=== PATIENT | male | born 1945 | race Caucasian/White ===

== ENCOUNTER 2017-04-04 20:59 | Emergency (ER) | payer MEDICARE, BC ==
[2017-04-04] MEDS ORDERED: Adacel (T-DAP) 0.5 ML VIAL ONE (21:40)
== END 2017-04-04 22:15 | disposition home or self-care (01) ==
LOC: SCSER 20:59
DX: S61.012A Laceration without foreign body of left thumb without damage to nail, initial encounter (principal); Z23 Encounter for immunization; I25.10 Atherosclerotic heart disease of native coronary artery without angina pectoris; E11.40 Type 2 diabetes mellitus with diabetic neuropathy, unspecified; I10 Essential (primary) hypertension; F32.9 Major depressive disorder, single episode, unspecified; Z87.891 Personal history of nicotine dependence; Z79.82 Long term (current) use of aspirin; W26.0XXA Contact with knife, initial encounter; Y93.G3 Activity, cooking and baking; Y92.69 Other specified industrial and construction area as the place of occurrence of the external cause; Y99.0 Civilian activity done for income or pay; Z79.899 Other long term (current) drug therapy; Z79.4 Long term (current) use of insulin
CPT/HCPCS: 90471; 90715

== ENCOUNTER 2017-04-08 16:31 | Inpatient (IN) | payer MEDICARE, BC ==
[2017-04-08 17:22] LABS: #Lymphocytes 0.6 thou/uL (1.20-3.40); #Monocytes 1.1 thou/uL (0.11-0.59); %Basophils 0.2 % (0.0-1.0); %Eosinophils 0.1 % (0.0-10.0); %Lymphocytes 3.3 % (21.0-51.0); Mean Platelet Volume 6.4 fL (7.4-10.4); Red Blood Cell (RBC) Count 4.78 mill/uL (4.70-6.10); White Blood Cell (WBC) Count 18.8 thou/uL (4.8-10.8)
--- NOTE | 2017-04-08 17:32 | RAD ---
AP CHEST: History: Fever. Date: 04-08-17 Comparison: 03-23-16 FINDINGS: Two AP views of the chest obtained and demonstrate sternotomy wires seen. Cardiomegaly is noted. The lungs are well aerated. No evidence of active intrathoracic disease seen. No evidence of effusions, pneumonia, or pneumothorax is seen. IMPRESSION: Unremarkable AP chest. POS: [facility]
[2017-04-08] MEDS ORDERED: Vancomycin HCl 1.5 GM in Sodium Chloride 0.9% 250 ML 300 ML IVPB ONE (17:45)
[2017-04-08 17:46] LABS: ALT (SGPT) 38 U/L (8-55); AST (SGOT) 35 U/L (5-34); Alkaline Phosphatase 147 U/L (40-150); Anion Gap 16 mmol/L (10-20); BUN (Urea Nitrogen) 14 mg/dL (8.4-25.7); Bilirubin, Total 1.7 mg/dL (0.2-1.2); Calc. Creatinine Clearance 0 mL/min (70-130); Calcium 9.7 mg/dL (7.8-10.44); Carbon Dioxide 24 mmol/L (23-31); Chloride 101 mmol/L (98-107); Estimated GFR-MDRD 90; Globulin 3.1 g/dL (2.4-3.5); Protein, Total 7.3 g/dL (5.8-8.1)
[2017-04-08 17:52] LABS: Lactic Acid - Sepsis 5.7 mmol/L (0.5-2.2)
[2017-04-08 18:59] LABS: Bilirubin Negative (Negative); Blood, Urine Moderate (Negative); Glucose, Urine (Dipstick) >=1000 mg/dL (Negative); Ketone, Urine 40 mg/dL (Negative); Nitrite Negative (Negative); Protein, Urine (Dipstick) Negative (Neg-Trace)
[2017-04-08 19:01] LABS: Bacteria/HPF None Seen HPF (None Seen); Hyaline Casts/LPF 0-3 HYALINE CAST LPF (0-3 Hyaline); RBC/HPF 0-3 HPF (0-3); Squamous Epithelial None Seen HPF (0-3); WBC/HPF 0-3 HPF (0-3)
[2017-04-08] MEDS ORDERED: Sodium Chloride 0.9% 1,000 ML IV SCH (20:30)
[2017-04-08] MEDS ORDERED: HumaLOG 300 UNITS/3 ML VIAL SC PRN (20:40)
[2017-04-08] MEDS ORDERED: Ondansetron ODT 4 MG TAB PO PRN (20:40)
[2017-04-08] MEDS ORDERED: Ondansetron HCl/PF 4 MG/2 ML Vial IVP PRN (20:40)
[2017-04-08] MEDS ORDERED: Acetaminophen 325 MG TAB PO PRN (20:40)
[2017-04-08] MEDS ORDERED: Senokot 8.6 MG TAB PO PRN (20:40)
[2017-04-08] MEDS ORDERED: Bisacodyl 5 MG TAB PO PRN (20:40)
[2017-04-08] MEDS ORDERED: Bisacodyl 10 MG SUPP PR PRN (20:40)
[2017-04-08] MEDS ORDERED: Dextrose 50% Abboject 50 ML SYRINGE SLOW IVP PRN (20:40)
[2017-04-08] MEDS ORDERED: Dextrose 5% in Water 1,000 ML IV PRN (20:40)
[2017-04-08] MEDS ORDERED: Enoxaparin Sodium 40 MG/0.4 ML SYRINGE SC SCH (20:45)
[2017-04-08 21:29] LABS: Lactic Acid - Sepsis 3.3 mmol/L (0.5-2.2)
[2017-04-08] MEDS: Insulin Detemir 100 UNITS/ML 25 UNITS in Admixture Fee SC SCH (21:30)
[2017-04-08] MEDS: Sodium Chloride 0.9% 1,000 ML IV SCH (21:50)
[2017-04-08] MEDS: Famotidine 20 MG TAB PO SCH (21:52)
[2017-04-08] MEDS: Piperacillin/Tazobactam 3.375 GM, Admixture Fee 1 EACH in Sodium Chloride 0.9% 100 ML IVPB SCH (23:13)
[2017-04-09] MEDS: oxyCODONE/Acetaminophen 5 mg/325 mg Tablet PO PRN ×3 (00:11→18:21)
[2017-04-09] MEDS: Gabapentin 300 MG CAP PO SCH ×6 (00:13→23:49)
[2017-04-09] MEDS: Sodium Chloride 0.9% 1,000 ML IV SCH ×5 (03:20→20:54)
[2017-04-09] MEDS ORDERED: Sodium Chloride 0.9% 1,000 ML IV SCH (04:15)
--- NOTE | 2017-04-09 06:19 | HP-2 ---
DATE OF ADMISSION: 04/08/2017 CODE STATUS: FULL. PRIMARY CARE PHYSICIAN: Colby Garcia M.D. ATTENDING PHYSICIAN: Stephany Giordano D.O. RESIDENT: James Aguiar, PGY-1 CHIEF COMPLAINT: Vomiting and generalized weakness. HISTORY OF PRESENT ILLNESS: This is a 71-year-old male that got sick around 9:00 this mor angelique. states that they were going to her appointment at the neurologist. On the way to the [place], he started to get chills. As they were in the office, he started to get real pale. She told him to go out and wait in the car. After she came out, she noticed that he was really confused , still having chills. At this time, they got home. She took his blood sugars around 250s thinking that he was maybe hypoglycemic. She laid him in bed to rest. She had to go on errands. She said w hen she got home that he was confused, kind of wrapped up in bed. There was vomit everywhere, some in the bathroom, checked sugar and again, it was 275. It was at this time, he came to the ER. The patient reports having a congestion a little bit for a few days before but denied any other symptoms before this. No cough. No real shortness of breath. Did report fevers, chills today. No diarrhe a, no constipation. Says that he does have constipation sometimes chronically. did say that h is urine smelled kind of strong. The patient reports that he takes Lantus baseline 25-45 mg at nigh t based on sugars and takes NovoLog fast acting as needed. REVIEW OF SYSTEMS: All review of systems not listed in the HPI, otherwise negative at this time. PAST MEDICAL HISTORY: Neuropathy, diabetes mellitus type 2, CAD, hypertension, hyperlipidemia. PAST SURGICAL HISTORY: Triple bypass in 2016, bilateral knee replacements, cholecystectomy, and eric endectomy. ALLERGIES: TIZANIDINE, TRAMADOL, and ULTRAM. MEDICATIONS: Colace, Lantus, NovoLog, Percocet 10/325, fentanyl patch 100 mg, gabapentin 600 mg t.i .d., trazodone 50 mg, tamsulosin 0.4 mg, atorvastatin 80 mg, metoprolol 100 mg, and aspirin 81 mg. FAMILY HISTORY: Mom has diabetes. SOCIAL HISTORY: Quit smoking 30 years ago. No alcohol use and no drug use. PHYSICAL EXAMINATION: VITAL SIGNS: His blood pressure is 136/93, pulse of 100, respirations 19, temperature is 100.9, pul se oximetry is 95% on 2 liters. Weight is 102 kg. GENERAL: The patient is alert and oriented x3. He is well-developed, little obese, appropriately i nteractive. EYES: PERRLA. Conjunctivae are within normal limits. ENT: Nasal mucosa within normal limits. Oropharynx is within normal limits. NECK: Supple, no lymphadenopathy, no thyromegaly, no bruits. CARDIOVASCULAR: Regular rate and rhythm. A systolic murmur is noted. No gallops. Radial pulses, pedal pulses palpated bilaterally. RESPIRATIONS: Normal breathing effort, symmetric chest expansion. Unlabored breathing. LUNGS: Clear to auscultation bilaterally. SKIN: Warm and dry. He does have a few cuts on his feet below, but no redness or tenderness noted. ABDOMEN: Soft, nontender to palpation. Bowel sounds heard in all 4 quadrants. No masses or disten tion. EXTREMITIES: Moves all extremities. NEUROLOGIC: No focal neuro deficits. PSYCHIATRIC: Appropriate. LABORATORY DATA: White blood cell count 18.8, hemoglobin 16.3, hematocrit 47, MCV 98.3, platelets 1 84. Sodium 136, potassium 4.5, chloride 101, CO2 of 24, BUN 14, creatinine 0.84, glucose is 271, ca lcium is 9.7, total protein was 7.3, albumin was 4.2, alkaline phosphatase was 147, AST was 35, ALT was 38, total bilirubin was 1.7. Lactic acid was 5.7, 98.3% neutrophils. UA showed moderate blood, ketones of 40, glucose over 1000, red blood cells 0-3, white blood cells 0-3. All other tests in t he UA were negative. Chest x-ray was unremarkable AP chest. ASSESSMENT AND PLAN: 1. Sepsis of unknown source. We will start him on vancomycin and Zosyn for broad coverage. We abdiel l start him on normal saline at 150 for fluid due to infection. He got 2 boluses in the ER. We abdiel l continue to check lactic acids and make sure they are trending down. We will check a flu swab. W e will repeat CBC in the morning to trend white blood cell count. We will repeat chest x-ray in the morning as when we viewed the chest x-ray, it did look like there is a little congestion on the lef t side and just want to be sure maybe when he is able to stand. We will give Tylenol for fevers and we will draw blood and urine cultures and await results. 2. Coronary artery disease. We will continue aspirin, beta-mynor, and a statin. 3. Diabetes mellitus type 2. We will start him on Levemir 25 units b.i.d. We will check Accu-Chek s a.c. and at bedtime and put him on a moderate sliding scale insulin. We will put him on a diabeti c diet. 4. Hypertension. Continue his home meds. 5. Hyperbilirubinemia. We will check a fraction of bilirubin and possibly order a right upper quad rant ultrasound. We will put him on Lovenox for a deep venous thrombosis prophylaxis.
[2017-04-09] MEDS: Piperacillin/Tazobactam 3.375 GM, Admixture Fee 1 EACH in Sodium Chloride 0.9% 100 ML IVPB SCH ×4 (06:37→23:49)
[2017-04-09 06:46] LABS: ALT (SGPT) 26 U/L (8-55); AST (SGOT) 35 U/L (5-34); Alkaline Phosphatase 107 U/L (40-150); Anion Gap 11 mmol/L (10-20); BUN (Urea Nitrogen) 10 mg/dL (8.4-25.7); Bilirubin, Total 1.2 mg/dL (0.2-1.2); Calc. Creatinine Clearance 0 mL/min (70-130); Calcium 7.9 mg/dL (7.8-10.44); Carbon Dioxide 19 mmol/L (23-31); Chloride 109 mmol/L (98-107); Estimated GFR-MDRD Greater than 90; Globulin 2.6 g/dL (2.4-3.5); Protein, Total 5.7 g/dL (5.8-8.1)
--- NOTE | 2017-04-09 06:46 | HP ---
DATE OF ADMISSION: 04/08/2017 ATTENDING: Stephany Giordano DO RESIDENT: Dr. James Aguiar. Dr. James Aguiar's history and physical have been reviewed and case discussed. Pertinent portions repeated by myself. I agree with the assessment and plan with following addendum. Mr. Lynn is a pleasant 71-year-old male with past medical history of coronary artery di sease, status post CABG, type 2 diabetes, hyperlipidemia, and hypertension, who was admitted today f or severe sepsis. There is no obvious source that could be identified at this time. His chest x-ra y does not appear to show pneumonia, but is difficult to read portable view. We will obtain PA and lateral. In addition, we will check a flu swab. UA does not show a UTI. He does have an elevated lactate, which was improved with fluid resuscitation. His current mental status is also improved. His glucose is stable. He does have a mildly elevated bilirubin, may consider with a mildly elevate d AST of 35. We will check a right upper quadrant ultrasound to evaluate for gallbladder involvemen t and cholecystitis. We will continue his home medications for his coronary artery disease and hype rlipidemia. He is not hypotensive at this time. We will consider maintaining at least some of his home blood pressure medications. The urine culture and blood cultures have been performed. We will monitor his neurologic status closely and perform LP if there is any concern for meningitis. He valle s been started on vancomycin and Zosyn. We will continue these at this time. His renal function is good and he should berenally dosed.
[2017-04-09 07:11] LABS: #Lymphocytes 1.1 thou/uL (1.20-3.40); #Monocytes 1.1 thou/uL (0.11-0.59); #Neutrophils 8.1 thou/uL (1.40-6.50); %Basophils 0.1 % (0.0-1.0); %Eosinophils 0.3 % (0.0-10.0); %Lymphocytes 10.7 % (21.0-51.0); %Monocytes 10.3 % (0.0-10.0); Hematocrit 39.7 % (42.0-52.0); Mean Platelet Volume 6.4 fL (7.4-10.4); White Blood Cell (WBC) Count 10.3 thou/uL (4.8-10.8)
--- NOTE | 2017-04-09 08:07 | PDOC.FM ---
- Subjective Subjective: Pt complains of new onset diarrhea and confusion. He denies fever, chills, nausea/vomiting, weakness, cough. There were no acute events over night. - Objective Vital Signs & Weight: Vital Signs (12 hours) Temp Pulse Resp BP Pulse Ox 04/09/17 04:00 100.3 F H 79 16 118/73 95 04/09/17 00:00 98.8 F 95 18 152/81 H 96 04/08/17 20:40 99.6 F 78 16 97 I&O: 04/08/17 04/09/17 04/10/17 06:59 06:59 06:59 Intake Total 1950 Output Total 700 Balance 1250 Result Diagrams: 04/09/17 06:10 04/09/17 06:10 Radiology Reviewed by me: Yes (possible RLL PNA. Rads read pending) <Christiano Betancourt - Last Filed: 04/09/17 08:05> - Objective Vital Signs & Weight: Vital Signs (12 hours) Temp Pulse Resp BP BP Pulse Ox 04/09/17 11:06 98.7 F 75 16 108/70 96 04/09/17 08:12 99.5 F 74 16 122/75 95 04/09/17 07:55 99.5 F 74 16 04/09/17 04:00 100.3 F H 79 16 118/73 95 I&O: 04/08/17 04/09/17 04/10/17 06:59 06:59 06:59 Intake Total 1950 Output Total 700 Balance 1250 Result Diagrams: 04/09/17 06:10 04/09/17 06:10 <Zuleika Rooney - Last Filed: 04/09/17 16:00> Phys Exam - Physical Examination Constitutional: NAD HEENT: PERRLA, moist MMs Neck: no nodes Respiratory: clear to auscultation bilateral Cardiovascular: RRR known systolic murmur Gastrointestinal: positive bowel sounds LUQ and LLQ tenderness, shifting dullness Musculoskeletal: no edema Neurological: non-focal Psychiatric: normal affect, A&O x 3 Skin: no rash Deviation from normal: multiple superficial abrasions on abdomen and L foot. Pt does not know the -: source <Christiano Betancourt - Last Filed: 04/09/17 08:05> Dx/Plan (1) Sepsis Code(s): A41.9 - SEPSIS, UNSPECIFIED ORGANISM Status: Acute Qualifiers: Sepsis type: sepsis due to unspecified organism Qualified Code(s): A41.9 - Sepsis, unspecified organism (2) Lactic acidosis Code(s): E87.2 - ACIDOSIS Status: Acute (3) Leukocytosis Code(s): D72.829 - ELEVATED WHITE BLOOD CELL COUNT, UNSPECIFIED Status: Resolved Qualifiers: Leukocytosis type: unspecified Qualified Code(s): D72.829 - Elevated white blood cell count, unspecified (4) Diarrhea Code(s): R19.7 - DIARRHEA, UNSPECIFIED Status: Acute Qualifiers: Diarrhea type: unspecified type Qualified Code(s): R19.7 - Diarrhea, unspecified (5) Hypoalbuminemia Code(s): E88.09 - OTH DISORDERS OF PLASMA-PROTEIN METABOLISM, NEC Status: Acute (6) Diabetes mellitus Code(s): E11.9 - TYPE 2 DIABETES MELLITUS WITHOUT COMPLICATIONS Status: Chronic Qualifiers: Diabetes mellitus type: type 2 Diabetes mellitus complication status: with neurologic complications Diabetes mellitus complication detail: with polyneuropathy Diabetes mellitus ad terminal makeup operator insulin use: with senior living use Qualified Code(s): E11.42 - Type 2 diabetes mellitus with diabetic polyneuropathy; Z79.4 - intermediate (current) use of insulin; Z79.4 - intermediate ( current) use of insulin; Z79.4 - terminal superintendent (current) use of insulin; Z79.4 - intermediate (current) use of insulin (7) Peripheral neuropathy Code(s): G62.9 - POLYNEUROPATHY, UNSPECIFIED Status: Chronic (8) HLD (hyperlipidemia) Code(s): E78.5 - HYPERLIPIDEMIA, UNSPECIFIED Status: Chronic Qualifiers: Hyperlipidemia type: Pure hypercholesterolemia (9) Hypertension Code(s): I10 - ESSENTIAL (PRIMARY) HYPERTENSION Status: Chronic Qualifiers: Hypertension type: essential hypertension Qualified Code(s): I10 - Essential (primary) hypertension (10) Chronic obstructive pulmonary disease (COPD) Status: Suspected (11) History of alcohol abuse Code(s): Z87.898 - PERSONAL HISTORY OF OTHER SPECIFIED CONDITIONS Status: Chronic - Plan Plan: 1. Sepsis -current source unknown. Differential includes PNA, diverticulitis, SBP, bacteremia -continue IVF -WBC has improved with abx. Continue Vanc and Zosyn until cx result -Abd US, evaluate for peritoneal effusion/cirrhosis -Repeat CXR -Stool sample for c diff -FOBT 2. lactic acidosis -2/2 sepsis. Eval and treat as above 3. Leukocytosis -currently resolved w/abx. -follow CBC 4. diarrhea -new onset this morning -eval for infectious etiology as above 5. hypoalbuminemia -possible cirrhosis -order prealbumin to evaluate for nutritional status 6. DM2 -uncontrolled diabetic w/significant peripheral neuropathy -low carb diet -SSI, continue home basal insulin 7. Peripheral neuropathy -feet do not appear to be infected, there are no ulcers -continue home fentanyl patch 8. HLD -continue home atorvastatin 9. HTN -controlled -continue home meds 10. COPD -per hx. Pt does not have an o2 requirement and is on no meds. Unsure if true dx 11. Previous etoh abuse -Abd US to evaluate for cirrhosis. Consider biopsy pending results <Christiano Betancourt - Last Filed: 04/09/17 08:05> Attending Addendum - Attending Addendum I personally evaluated the patient and discussed the management with Dr. Betancourt. I agree with the History, Examination, Assessment and Plan documented above with any addition or exceptions noted below. Source of infection is unknown at this time though I suspect he may have diverticulitis or other colon infection. Pt developed diarrhea this morning and had abdominal pain. The patient's abdominal pain resolved during my visit. Will get CT abd/pelvis. Continue antibiotics and await cultures. <Zuleika Rooney - Last Filed: 04/09/17 16:00>
--- NOTE | 2017-04-09 08:17 | ULT ---
RIGHT UPPER QUADRANT ULTRASOUND: Date: 04/09/17 HISTORY: Elevated bilirubin levels. FINDINGS: The left lobe of the liver is suboptimally visualized. The remainder of the liver demonstrates incre ased echogenicity consistent with fatty infiltration without definite focal mass or intrahepatic ramonita clay dilatation. The gallbladder, common bile duct, and pancreas are not visualized. The right kidney demonstrates a 1.9 cm cyst. No hydronephrosis seen in the right kidney. No free fluid is noted in M orison's pouch. IMPRESSION: 1. Limited exam. 2. Fatty liver. 3. Right renal cyst. POS: [facility]
--- NOTE | 2017-04-09 08:22 | RAD ---
PA AND LATERAL VIEWS CHEST: Date: 04/09/17 HISTORY: Fever. FINDINGS: Comparison made with exam from previous day. There are changes of median sternotomy. The heart size is enlarged. The lungs are well expanded with out focal areas of consolidation, pneumothorax, lalit pulmonary edema, or pleural effusions. There a re degenerative changes in the spine. IMPRESSION: No acute process. POS: [facility]
[2017-04-09] MEDS: Insulin Detemir 100 UNITS/ML 25 UNITS in Admixture Fee SC SCH ×2 (10:08→20:53)
[2017-04-09] MEDS: Aspirin 81 mg Enteric Coated Tablet PO SCH (10:08)
[2017-04-09] MEDS: Famotidine 20 MG TAB PO SCH ×2 (10:08→20:52)
[2017-04-09] MEDS: fentaNYL 100 mcg/hour Patch TD SCH (10:20)
[2017-04-09 10:54] LABS: Lactic Acid - Sepsis 3.1 mmol/L (0.5-2.2)
[2017-04-09] MEDS ORDERED: Iopamidol 370 76% 100 ML VIAL ONE (13:01)
--- NOTE | 2017-04-09 15:21 | CT ---
CT OF THE ABDOMEN AND PELVIS: Date: 04-09-17 Comparison: 04-27-14 History: Sepsis, fever, and diarrhea. Technique: Serial axial CT imaging at 5 mm intervals from lung bases through the pubic symphysis wit h intravenous and oral contrast. Coronal reformatted imaging obtained. FINDINGS: The imaged lung bases appear unremarkable. Cholecystectomy clips are present. No free intraperitonea l air is noted. The hepatic parenchyma is diffusely hypodense, evidence of steatosis. Punctate calcifications within the liver and spleen noted, evidence of prior granulomatous disease. There is fatty atrophy of the pancreas, stable. A stable duodenal diverticulum is present. Left adrenal gland is unremarkable. There is calcification as well as areas of fat density within the adrenal gland on the right, stable , suggesting sequellae of prior insult and/or adrenal myelolipoma. There is a nonobstructing subcentimeter stone in the lower pole of the left kidney. There is an exophytic hypodense lesion within the midpole of the right kidney measuring 2 cm with Ho unsfield units of 11-14, suggesting a cyst. Fluid density material is seen within the distal sigmoid colon and rectum, suggesting liquid stool o n the basis of diarrheal illness. The region of the ascending colon and hepatic flexure demonstrates a mild degree of wall thickening and questionable mild pericolonic fat stranding, especially in the region of the ascending colon. Th is may represent a focal area of colitis. There is no evidence for intraabdominal abscess or large/s mall bowel obstruction. There is relatively mild scattered arthrosclerotic calcification of the abdominal aorta and its bran ches. The celiac axis, superior mesenteric artery, and inferior mesenteric artery are patent. There is no lymphadenopathy in the pelvis, the retroperitoneum, or the mesentery. There is a mildly enlarged stable portahepatis node on axial images 27 with internal punctate calcification. 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 No acute osseous abnormality is seen. IMPRESSION: 1. No evidence for bowel obstruction or free intraperitoneal air. 2. Mild wall thickening of the ascending colon and hepatic flexure with probable mild pericolonic fa t stranding. Findings are suspicious for nonspecific right sided colitis. Liquid material within the sigmoid colon and rectum suggests a diarrheal illness. 3. Additional incidental findings as detailed above. POS: [facility]
[2017-04-09 18:31] VITALS: BMI 30.7
[2017-04-09] MEDS: Tamsulosin HCl 0.4 MG CAP PO SCH (20:52)
[2017-04-09] MEDS: Atorvastatin Calcium 40 MG TAB PO SCH (20:53)
[2017-04-09] MEDS: traZODone HCl 50 MG TAB PO SCH (20:53)
[2017-04-10] MEDS: Sodium Chloride 0.9% 1,000 ML IV SCH (05:29)
[2017-04-10] MEDS: Piperacillin/Tazobactam 3.375 GM, Admixture Fee 1 EACH in Sodium Chloride 0.9% 100 ML IVPB SCH (05:29)
[2017-04-10 07:49] LABS: ALT (SGPT) 29 U/L (8-55); AST (SGOT) 42 U/L (5-34); Alkaline Phosphatase 95 U/L (40-150); Anion Gap 10 mmol/L (10-20); BUN (Urea Nitrogen) 8 mg/dL (8.4-25.7); Bilirubin, Total 1.3 mg/dL (0.2-1.2); Calc. Creatinine Clearance 178 mL/min (70-130); Calcium 8.1 mg/dL (7.8-10.44); Carbon Dioxide 20 mmol/L (23-31); Chloride 108 mmol/L (98-107); Estimated GFR-MDRD Greater than 90; Globulin 2.4 g/dL (2.4-3.5); Protein, Total 5.5 g/dL (5.8-8.1)
[2017-04-10 07:51] LABS: #Basophils 0.1 thou/uL (0.0-0.2); #Eosinphils 0.2 thou/uL (0.0-0.7); #Lymphocytes 1.5 thou/uL (1.20-3.40); #Neutrophils 5.8 thou/uL (1.40-6.50); %Basophils 0.7 % (0.0-1.0); %Lymphocytes 17.2 % (21.0-51.0); %Monocytes 11.9 % (0.0-10.0); Mean Platelet Volume 6.5 fL (7.4-10.4); White Blood Cell (WBC) Count 8.5 thou/uL (4.8-10.8)
[2017-04-10] MEDS ORDERED: Potassium Chloride 20 MEQ TAB PO ONE (07:54)
--- NOTE | 2017-04-10 07:58 | PDOC.FM ---
- Subjective Subjective: Pt states that he feels well today. His diarrhea has continued, but improved. He states that his abdominal pain has resolved. He denies fever, chills, n/v. His appetite is good. There were no acute events over night. - Objective MAR Reviewed: Yes Vital Signs & Weight: Vital Signs (12 hours) Temp Pulse Resp BP Pulse Ox 04/10/17 07:35 98 F 65 16 121/79 94 L 04/09/17 20:00 98.7 F 61 18 148/88 H 96 Weight Weight 105.687 kg I&O: 04/09/17 04/10/17 04/11/17 06:59 06:59 06:59 Intake Total 1950 4905 Output Total 700 150 Balance 1250 4755 Result Diagrams: 04/10/17 04:44 04/10/17 04:44 <Christiano Betancourt - Last Filed: 04/10/17 08:21> - Objective Vital Signs & Weight: Vital Signs (12 hours) Temp Pulse Resp BP Pulse Ox 04/10/17 07:35 98 F 65 16 121/79 94 L Weight Admit Weight 105.687 kg Weight 105.687 kg I&O: 04/09/17 04/10/17 04/11/17 06:59 06:59 06:59 Intake Total 1950 4905 Output Total 700 150 Balance 1250 4755 Result Diagrams: 04/10/17 04:44 04/10/17 04:44 <Zuleika Rooney - Last Filed: 04/10/17 10:51> Phys Exam - Physical Examination Constitutional: NAD HEENT: moist MMs Neck: no JVD, full ROM Respiratory: clear to auscultation bilateral Cardiovascular: RRR Known systolic murmur Gastrointestinal: soft, non-tender, no distention, positive bowel sounds Musculoskeletal: no edema Neurological: non-focal Psychiatric: normal affect, A&O x 3 Skin: no rash <Christiano Betancourt - Last Filed: 04/10/17 08:21> Dx/Plan (1) Sepsis Code(s): A41.9 - SEPSIS, UNSPECIFIED ORGANISM Status: Resolved Qualifiers: Sepsis type: sepsis due to unspecified organism Qualified Code(s): A41.9 - Sepsis, unspecified organism (2) Lactic acidosis Code(s): E87.2 - ACIDOSIS Status: Resolved (3) Leukocytosis Code(s): D72.829 - ELEVATED WHITE BLOOD CELL COUNT, UNSPECIFIED Status: Resolved Qualifiers: Leukocytosis type: unspecified Qualified Code(s): D72.829 - Elevated white blood cell count, unspecified (4) Diarrhea Code(s): R19.7 - DIARRHEA, UNSPECIFIED Status: Acute Qualifiers: Diarrhea type: unspecified type Qualified Code(s): R19.7 - Diarrhea, unspecified (5) Hypoalbuminemia Code(s): E88.09 - OTH DISORDERS OF PLASMA-PROTEIN METABOLISM, NEC Status: Acute (6) Diabetes mellitus Code(s): E11.9 - TYPE 2 DIABETES MELLITUS WITHOUT COMPLICATIONS Status: Chronic Qualifiers: Diabetes mellitus type: type 2 Diabetes mellitus complication status: with neurologic complications Diabetes mellitus complication detail: with polyneuropathy Diabetes mellitus predatory animal exterminator insulin use: with predatory animal exterminator use Qualified Code(s): E11.42 - Type 2 diabetes mellitus with diabetic polyneuropathy; Z79.4 - long-term (current) use of insulin; Z79.4 - intermediate project manager ( current) use of insulin; Z79.4 - long-term (current) use of insulin; Z79.4 - intermediate project manager (current) use of insulin (7) Peripheral neuropathy Code(s): G62.9 - POLYNEUROPATHY, UNSPECIFIED Status: Chronic (8) HLD (hyperlipidemia) Code(s): E78.5 - HYPERLIPIDEMIA, UNSPECIFIED Status: Chronic Qualifiers: Hyperlipidemia type: Pure hypercholesterolemia (9) Hypertension Code(s): I10 - ESSENTIAL (PRIMARY) HYPERTENSION Status: Chronic Qualifiers: Hypertension type: essential hypertension Qualified Code(s): I10 - Essential (primary) hypertension (10) Chronic obstructive pulmonary disease (COPD) Status: Suspected (11) History of alcohol abuse Code(s): Z87.898 - PERSONAL HISTORY OF OTHER SPECIFIED CONDITIONS Status: Chronic (12) Hypokalemia Code(s): E87.6 - HYPOKALEMIA Status: Acute (13) Transaminitis Code(s): R74.0 - NONSPEC ELEV OF LEVELS OF TRANSAMNS & LACTIC ACID DEHYDRGNSE Status: Acute - Plan Plan: 1. Sepsis -no longer meets sepsis criteria -source not definitive, however per CT appears to be a colitis of the ascending colon. Does not appear to be ischemic in nature as FOBT is neg. D -Stop IVF, encourage PO intake -WBC has improved with abx. Continue Vanc and Zosyn until cx result -Abd US shows fatty liver. No effusion -Repeat CXR was negative -C dif negative -FOBT negative 2. hypokalemia -new onset, likely dilution -will replace po today 3. lactic acidosis -2/2 sepsis. resolved 4. Leukocytosis -currently resolved w/abx. -follow CBC 5. diarrhea -improving -stool cultures will likely be unhelpful dt abx 6. hypoalbuminemia -prealbumin is low, apparent nutritional issue. -consult nutrition 7. DM2 -uncontrolled diabetic w/significant peripheral neuropathy -low carb diet -SSI, continue home basal insulin 8. Peripheral neuropathy -feet do not appear to be infected, there are no ulcers -continue home fentanyl patch 9. HLD -continue home atorvastatin 10. HTN -controlled -continue home meds 11. COPD -per hx. Pt does not have an o2 requirement and is on no meds. Unsure if true dx 12. Previous etoh abuse -Abd US suggestive of fatty infiltrate. Does not appear to be cirrhosis 13. Transaminitis -Mild AST elevation. Given etoh Hx and fatty infiltrate on US, should be followed outpatient. I do not think that this is related to current hospitalization <Christiano Betancourt - Last Filed: 04/10/17 08:21> Attending Addendum - Attending Addendum I personally evaluated the patient and discussed the management with Dr. Betancourt. I agree with the History, Examination, Assessment and Plan documented above with any addition or exceptions noted below. The patient continues to have diarrhea. Will change antibiotics to cipro and flagyl. Sepsis improved. <Zuleika Rooney - Last Filed: 04/10/17 10:51>
[2017-04-10] MEDS ORDERED: Vancomycin HCl 1.5 GM, Admixture Fee 1 EACH in Sodium Chloride 0.9% 250 ML 300 ML IVPB SCH (08:00)
[2017-04-10] MEDS: Famotidine 20 MG TAB PO SCH ×2 (08:21→21:08)
[2017-04-10] MEDS: Gabapentin 300 MG CAP PO SCH ×5 (08:21→23:23)
[2017-04-10] MEDS: Aspirin 81 mg Enteric Coated Tablet PO SCH (08:21)
[2017-04-10] MEDS: oxyCODONE/Acetaminophen 5 mg/325 mg Tablet PO PRN ×2 (08:27→15:36)
[2017-04-10] MEDS: Insulin Detemir 100 UNITS/ML 25 UNITS in Admixture Fee SC SCH ×2 (08:30→21:06)
[2017-04-10] MEDS ORDERED: FLU VACC TS2017-18 (>65YR) 0.5 ML SYRINGE IM ONE (09:00)
[2017-04-10] MEDS ORDERED: Ciprofloxacin 500 MG TAB PO SCH (12:15)
[2017-04-10] MEDS: metroNIDAZOLE 500 MG TAB PO SCH ×2 (15:33→21:08)
[2017-04-10] MEDS ORDERED: Cipro 250 MG TAB PO SCH (20:00)
[2017-04-10] MEDS: Atorvastatin Calcium 40 MG TAB PO SCH (21:07)
[2017-04-10] MEDS: Ciprofloxacin 500 MG TAB PO SCH (21:07)
[2017-04-10] MEDS: Tamsulosin HCl 0.4 MG CAP PO SCH (21:08)
[2017-04-10] MEDS: traZODone HCl 50 MG TAB PO SCH (21:08)
[2017-04-11] MEDS: oxyCODONE/Acetaminophen 5 mg/325 mg Tablet PO PRN ×2 (02:59→10:53)
[2017-04-11] MEDS: Gabapentin 300 MG CAP PO SCH ×3 (02:59→13:35)
[2017-04-11] MEDS: Ciprofloxacin 500 MG TAB PO SCH (05:21)
[2017-04-11 06:24] LABS: #Basophils 0.1 thou/uL (0.0-0.2); #Eosinphils 0.2 thou/uL (0.0-0.7); #Lymphocytes 1.2 thou/uL (1.20-3.40); #Monocytes 0.9 thou/uL (0.11-0.59); #Neutrophils 5.5 thou/uL (1.40-6.50); %Basophils 0.9 % (0.0-1.0); %Lymphocytes 15.5 % (21.0-51.0); %Monocytes 11.5 % (0.0-10.0); Hematocrit 40.5 % (42.0-52.0); Mean Platelet Volume 6.7 fL (7.4-10.4); Red Blood Cell (RBC) Count 4.12 mill/uL (4.70-6.10); White Blood Cell (WBC) Count 7.9 thou/uL (4.8-10.8)
[2017-04-11 06:43] LABS: ALT (SGPT) 43 U/L (8-55); AST (SGOT) 71 U/L (5-34); Alkaline Phosphatase 96 U/L (40-150); Anion Gap 9 mmol/L (10-20); BUN (Urea Nitrogen) 7 mg/dL (8.4-25.7); Bilirubin, Total 1.1 mg/dL (0.2-1.2); Calc. Creatinine Clearance 169 mL/min (70-130); Calcium 8.2 mg/dL (7.8-10.44); Carbon Dioxide 24 mmol/L (23-31); Chloride 106 mmol/L (98-107); Estimated GFR-MDRD Greater than 90; Globulin 2.6 g/dL (2.4-3.5); Protein, Total 5.9 g/dL (5.8-8.1)
[2017-04-11] MEDS ORDERED: Potassium Chloride 20 MEQ TAB PO SCH (06:49)
--- NOTE | 2017-04-11 06:57 | PDOC.FM ---
- Subjective Subjective: Pt feels well today and is asking when he'll be ready to go home. He is tolerating PO intake and states that his diarrhea seems to be improved. He denies abdominal pain. All other symptoms in ROS were negative. There were no events over night. - Objective MAR Reviewed: Yes Vital Signs & Weight: Vital Signs (12 hours) Temp Pulse Resp BP Pulse Ox 04/10/17 20:00 98.6 F 60 16 125/72 95 Weight Admit Weight 105.687 kg Weight 105.687 kg I&O: 04/09/17 04/10/17 04/11/17 06:59 06:59 06:59 Intake Total 1950 4905 360 Output Total 700 150 800 Balance 1250 4755 -440 Result Diagrams: 04/11/17 05:07 04/11/17 05:07 <Christiano Betancourt - Last Filed: 04/11/17 06:55> - Objective Vital Signs & Weight: Vital Signs (12 hours) Temp Pulse Resp BP Pulse Ox 04/11/17 07:39 98.8 F 64 18 120/76 94 L Weight Admit Weight 105.687 kg Weight 105.687 kg I&O: 04/10/17 04/11/17 04/12/17 06:59 06:59 06:59 Intake Total 4905 360 Output Total 150 800 Balance 4755 -440 Result Diagrams: 04/11/17 05:07 04/11/17 05:07 <Zuleika Rooney - Last Filed: 04/11/17 09:41> Phys Exam - Physical Examination Constitutional: NAD HEENT: moist MMs Neck: no nodes, no JVD Respiratory: clear to auscultation bilateral Cardiovascular: RRR known systolic murmur Gastrointestinal: soft, non-tender, no distention, positive bowel sounds Musculoskeletal: no edema Neurological: non-focal, normal sensation Psychiatric: normal affect, A&O x 3 Skin: no rash <Christiano Betancourt - Last Filed: 04/11/17 06:55> Dx/Plan (1) Sepsis Code(s): A41.9 - SEPSIS, UNSPECIFIED ORGANISM Status: Resolved Qualifiers: Sepsis type: sepsis due to unspecified organism Qualified Code(s): A41.9 - Sepsis, unspecified organism (2) Lactic acidosis Code(s): E87.2 - ACIDOSIS Status: Resolved (3) Leukocytosis Code(s): D72.829 - ELEVATED WHITE BLOOD CELL COUNT, UNSPECIFIED Status: Resolved Qualifiers: Leukocytosis type: unspecified Qualified Code(s): D72.829 - Elevated white blood cell count, unspecified (4) Diarrhea Code(s): R19.7 - DIARRHEA, UNSPECIFIED Status: Resolved Qualifiers: Diarrhea type: presumed infectious Qualified Code(s): A09 - Infectious gastroenteritis and colitis, unspecified (5) Hypoalbuminemia Code(s): E88.09 - OTH DISORDERS OF PLASMA-PROTEIN METABOLISM, NEC Status: Acute (6) Diabetes mellitus Code(s): E11.9 - TYPE 2 DIABETES MELLITUS WITHOUT COMPLICATIONS Status: Chronic Qualifiers: Diabetes mellitus type: type 2 Diabetes mellitus complication status: with neurologic complications Diabetes mellitus complication detail: with polyneuropathy Diabetes mellitus terminal computer operator insulin use: with [facility] use Qualified Code(s): E11.42 - Type 2 diabetes mellitus with diabetic polyneuropathy; Z79.4 - terminal computer operator (current) use of insulin; Z79.4 - snf ( current) use of insulin; Z79.4 - terminal computer operator (current) use of insulin; Z79.4 - snf (current) use of insulin (7) Peripheral neuropathy Code(s): G62.9 - POLYNEUROPATHY, UNSPECIFIED Status: Chronic (8) HLD (hyperlipidemia) Code(s): E78.5 - HYPERLIPIDEMIA, UNSPECIFIED Status: Chronic Qualifiers: Hyperlipidemia type: Pure hypercholesterolemia (9) Hypertension Code(s): I10 - ESSENTIAL (PRIMARY) HYPERTENSION Status: Chronic Qualifiers: Hypertension type: essential hypertension Qualified Code(s): I10 - Essential (primary) hypertension (10) Chronic obstructive pulmonary disease (COPD) Status: Suspected (11) History of alcohol abuse Code(s): Z87.898 - PERSONAL HISTORY OF OTHER SPECIFIED CONDITIONS Status: Chronic (12) Hypokalemia Code(s): E87.6 - HYPOKALEMIA Status: Acute (13) Transaminitis Code(s): R74.0 - NONSPEC ELEV OF LEVELS OF TRANSAMNS & LACTIC ACID DEHYDRGNSE Status: Acute - Plan Plan: 1. Sepsis 2/2 infection colitis -no longer meets sepsis criteria -source not definitive, however per CT appears to be a colitis of the ascending colon. Does not appear to be ischemic in nature as FOBT is neg. -Currently tolerating and improving on flagyl plus cipro -C dif negative -FOBT negative 2. hypokalemia -replace again today. This could be due to the zosyn he was on previously. -Mg level ordered. 3. lactic acidosis -2/2 sepsis. resolved 4. Leukocytosis -currently resolved w/abx. -follow CBC 5. diarrhea -resolved 6. hypoalbuminemia -prealbumin is low, apparent nutritional issue. -consult nutrition 7. DM2 -uncontrolled diabetic w/significant peripheral neuropathy -low carb diet -SSI, continue home basal insulin 8. Peripheral neuropathy -feet do not appear to be infected, there are no ulcers -continue home fentanyl patch 9. HLD -continue home atorvastatin 10. HTN -controlled -continue home meds 11. COPD -per hx. Pt does not have an o2 requirement and is on no meds. Unsure if true dx 12. Previous etoh abuse -Abd US suggestive of fatty infiltrate. Does not appear to be cirrhosis 13. Transaminitis -Mild AST elevation. Given etoh Hx and fatty infiltrate on US, should be followed outpatient. -it is possible that zosyn has caused a rise in an already elevated AST <Christiano Betancourt - Last Filed: 04/11/17 06:55> Attending Addendum - Attending Addendum I personally evaluated the patient and discussed the management with Dr. Betancourt. I agree with the History, Examination, Assessment and Plan documented above with any addition or exceptions noted below. The patient complains of mild nausea after taking his flagyl this morning on an empty stomach. His diarrhea has resolved. Otherwise he is feeling better and requests to go home. Replacing potassium. <Zuleika Rooney - Last Filed: 04/11/17 09:41>
[2017-04-11 07:40] VITALS: BP 120/76; TEMP 98.8
[2017-04-11] MEDS: metroNIDAZOLE 500 MG TAB PO SCH (10:45)
[2017-04-11] MEDS: Aspirin 81 mg Enteric Coated Tablet PO SCH (10:45)
[2017-04-11] MEDS: Famotidine 20 MG TAB PO SCH (10:45)
[2017-04-11] MEDS: Insulin Detemir 100 UNITS/ML 25 UNITS in Admixture Fee SC SCH (10:47)
[2017-04-11] MEDS: fentaNYL 100 mcg/hour Patch TD SCH (10:47)
--- NOTE | 2017-04-11 14:33 | DIS-2 ---
DATE OF ADMISSION: 04/08/2017 DATE OF DISCHARGE: 04/11/2017 RESIDENT: Christiano Betancourt D.O. ADMITTING ATTENDING: Stephany Giordano D.O. DISCHARGE ATTENDING: Zuleika Rooney M.D. CONSULTATIONS: None. PROCEDURES: None. PRIMARY DIAGNOSIS: Sepsis secondary to infectious colitis. SECONDARY DIAGNOSES: Coronary artery disease, diabetes mellitus type 2, hypertension, hyperbilirubinemia, transaminitis, peripheral neuropathy, diarrhea , lactic acidosis, leukocytosis, hypoalbuminemia. DISCONTINUED MEDICATIONS: None. DISCHARGE MEDICATIONS: Percocet 10/325 1 p.o. q.4 hours p.r.n. pain, fentanyl patch TD 100 mcg q.2 days, insulin glargine as sliding scale, gabapentin 600 mg p.o. per day, trazodone 50 mg p.o. at bedtime, Flomax 0.4 mg p.o. at bedtime, aspirin 81 mg p.o. daily, Humalog subcu p.r.n., atorvastatin 80 mg p.o. at bedtime, Flagyl 500 mg p.o. t.i.d. x10 days, Cipro 500 mg p.o. b.i.d. x10 days. HOSPITAL COURSE: The patient was admitted for confusion, vomiting, and diarrhea. The patient was initially septic and admitted for sepsis of unknown source. Blood cultures were negative. Urine cultures were negative. An abdominal CT showed a likely colitis. The patient was initially started on vancomycin and Zosyn in the emergency room and has received 3 days of those medications and was transitioned to Flagyl and Cipro on 04/10/2017, which he tolerated well. By 04/10/2017, he was able to tolerate p.o. food and drink well and was taken off of IV fluids and all medications were made p.o. The patient's acute symptoms such as confusion were really only present on the first day of admission. After the first 24 hours of antibiotics, returned to the normal mental status. At one point, he did have a slightly tender abdomen; however, largely his major complaint while hospitalized was diarrhea that onset on the second day of admission. By the time of discharge, the patient's diarrhea had resolved. There was no nausea or vomiting. There is no abdominal pain. There are no fevers. Vital signs were all normal. It was noted during admission that his potassium was slightly low somewhere between 3.4 and 3.2. We will replace potassium 40 mEq p.o. two days in a row. Magnesium was checked, it was normal. It is determined that this could possibly be an effect of the Zosyn, which can produce a hypokalemia. Additionally, the patient had an elevation of his AST while initially. His CMP did show a slightly elevated AST of 35 over the course of hospitalization and went from 35-71. This was also assumed to be an effect of the Zosyn; however, given the patient's history of alcoholism, it is recommended that he be followed outpatient and additional workup may be warranted. DISPOSITION: Stable. DISCHARGE INSTRUCTIONS: 1. Location: Home. 2. Diet: Heart healthy. 3. Activity: ad courtney. 4. Followup: With PCP, Dr. Garcia within 7 days. [facility]
--- NOTE | 2017-04-16 11:38 | PQF ---
MERARI MONSON LELA GEIGER DO *r [id number] CLINICAL DOCUMENTATION CLARIFICATION FORM: POST DISCHARGE Please clarify if documented "confusion" can be further specified. PER DC SUMMARY- PRIMARY DIAGNOSIS: "Sepsis secondary to infectious Colitis." HOSPITAL COURSE: "The patient's acute symptoms such as confusion were really only present on the first day of admission. After the first 24 hours of antibiotics, returned to the normal mental status." HISTORY AND PHYSICAL REPORT: "...admitted today for severe sepsis." Please exercise your independent, professional judgment in responding to the clarification form. Clinical indicators are provided on the bottom of this form for your review. Thank you. Please check appropriate box(s): [ x] Encephalopathy: Type: [ x] Acute [ ] Subacute [ ] Chronic Etiology: [ ] Hypertensive [ x] Metabolic [ ] Toxic [ ] Hepatic with Coma [ ] Hepatic w/o Coma [ ] Hypoxic [ ] Septic [ ] Drug induced: [ ] Unspecified [ ] in the setting of underlying dementia [ ] Other (please specify) [ ] Transient Alteration of Awareness [ ] Other diagnosis [ ] Unable to determine In addition, please specify: Present on Admission (POA): [ ] Yes [ ] No [ ] Unable to determine CLINICAL INDICATORS - SIGNS / SYMPTOMS / LABS Altered mental status / confusion improving once cause is corrected (acute) Dementia over baseline Metabolic / electrolyte abnormality Hypoxia for prolonged period Sepsis Liver disease Severe Hypertension IV meds that can cause altered mental state Cerebral Edema Severe malnutrition EEG RISK FACTORS Hypertension - uncontrolled Infectious process Toxic substances / poisoning Cirrhosis Meningitis Electrolyte imbalance Brain tumor / elevated ICP DKA or hypoglycemia TREATMENTS: Neuro checks / neurology consult Cause is corrected encephalopathy resolves Antihypertensives (IV) Lactulose and Liver studies Oxygen therapy Nutritional supplements-TPN/TF Correction of electrolyte imbalances IV antibiotics IV fluids (This form is maintained as a part of the permanent medical record) 2014 [email or web address]. All Rights Reserved [email or web address] [phone] ISSA
--- NOTE | 2017-04-20 18:40 | EKG ---
Test Reason : Blood Pressure : / mmHG Vent. Rate : 092 BPM Atrial Rate : 092 BPM P-R Int : 182 ms QRS Dur : 092 ms QT Int : 374 ms P-R-T Axes : 039 013 035 degrees QTc Int : 462 ms Normal sinus rhythm Possible Inferior infarct , age undetermined Abnormal ECG Confirmed by KIAH TRAVIS, GRACIELA Deluca (17), editor at large HIRAM LANGSTON (16) on 04/20/2017 6:40:04 PM Referred By: Confirmed By:GRACIELA DUPONT MD
== END 2017-04-11 14:34 | disposition home or self-care (01) | DRG 871 ==
LOC: ERS 16:31 → T4-A 18:10
PROVIDERS: ADMIT Family Medicine; ATTEND Family Medicine
DX: A41.9 Sepsis, unspecified organism (principal); G93.41 Metabolic encephalopathy; E87.2 Acidosis; E11.42 Type 2 diabetes mellitus with diabetic polyneuropathy; A09 Infectious gastroenteritis and colitis, unspecified; E88.09 Other disorders of plasma-protein metabolism, not elsewhere classified; I25.10 Atherosclerotic heart disease of native coronary artery without angina pectoris; I10 Essential (primary) hypertension; E80.6 Other disorders of bilirubin metabolism; E87.6 Hypokalemia; T36.0X5A Adverse effect of penicillins, initial encounter; F10.20 Alcohol dependence, uncomplicated; R74.0 Nonspecific elevation of levels of transaminase and lactic acid dehydrogenase [LDH]; Z95.1 Presence of aortocoronary bypass graft; Z87.891 Personal history of nicotine dependence; R65.20 Severe sepsis without septic shock; Z79.4 Long term (current) use of insulin; E78.00 Pure hypercholesterolemia, unspecified
CPT/HCPCS: 36415; 36416; 71010; 71020; 74177; 76705; 80053; 81003; 81015; 82248; 82274; 83605; 83735; 84134; 85025; 87040; 87086; 87324; 87449; 87631; 93005; 96365; 96367; A4216; J1650; J1815; J2405; J2543; J3370; J7050

== ENCOUNTER 2017-04-15 23:49 | Emergency (ER) | payer MEDICARE, BC | END 2017-04-16 02:08 | disposition home or self-care (01) | LOC: ERS 23:49 | DX: B35.4 Tinea corporis (principal); E11.9 Type 2 diabetes mellitus without complications; I10 Essential (primary) hypertension; I25.810 Atherosclerosis of coronary artery bypass graft(s) without angina pectoris; Z87.891 Personal history of nicotine dependence | CPT/HCPCS: 99282 ==

== ENCOUNTER 2017-05-07 19:09 | Emergency (ER) | payer MEDICARE, BC ==
[2017-05-07 20:24] LABS: #Eosinphils 0.1 thou/uL (0.0-0.7); #Lymphocytes 1.5 thou/uL (1.20-3.40); #Monocytes 0.7 thou/uL (0.11-0.59); #Neutrophils 8.6 thou/uL (1.40-6.50); %Basophils 0.4 % (0.0-1.0); %Eosinophils 0.8 % (0.0-10.0); %Lymphocytes 13.6 % (21.0-51.0); %Monocytes 6.8 % (0.0-10.0); Hematocrit 48.8 % (42.0-52.0); Mean Platelet Volume 6.3 fL (7.4-10.4); Red Blood Cell (RBC) Count 4.84 mill/uL (4.70-6.10); White Blood Cell (WBC) Count 10.9 thou/uL (4.8-10.8)
[2017-05-07 20:49] LABS: ALT (SGPT) 31 U/L (8-55); AST (SGOT) 32 U/L (5-34); Alkaline Phosphatase 154 U/L (40-150); Anion Gap 14 mmol/L (10-20); BUN (Urea Nitrogen) 18 mg/dL (8.4-25.7); Bilirubin, Total 1.9 mg/dL (0.2-1.2); CK (CPK) 21 U/L (30-200); Calc. Creatinine Clearance 0 mL/min (70-130); Calcium 9.5 mg/dL (7.8-10.44); Carbon Dioxide 25 mmol/L (23-31); Chloride 104 mmol/L (98-107); Estimated GFR-MDRD Greater than 90; Globulin 3.5 g/dL (2.4-3.5); Protein, Total 7.8 g/dL (5.8-8.1)
[2017-05-07 20:53] LABS: Troponin I Less than 0.010 ng/mL (< 0.028)
[2017-05-07 21:39] LABS: Lactic Acid - Sepsis 2.2 mmol/L (0.5-2.2)
--- NOTE | 2017-05-07 21:50 | RAD ---
PORTABLE CHEST: 05/07/17 HISTORY: Weakness. COMPARISON: 04/08/17. The heart is enlarged. Postop sternotomy change. Lungs are clear. No evidence of vascular congestion, edema, or infiltrate. Calcified granuloma in the right upper lobe again noted. IMPRESSION: No acute process. POS: [facility]
[2017-05-07 23:13] LABS: Bilirubin Small (Negative); Blood, Urine Negative (Negative); Glucose, Urine (Dipstick) Negative (Negative); Ketone, Urine 40 mg/dL (Negative); Nitrite Negative (Negative); Protein, Urine (Dipstick) Negative (Neg-Trace)
== END 2017-05-07 23:50 | disposition home or self-care (01) ==
LOC: ERS 19:09
DX: R53.1 Weakness (principal); R21 Rash and other nonspecific skin eruption; I25.10 Atherosclerotic heart disease of native coronary artery without angina pectoris; E11.40 Type 2 diabetes mellitus with diabetic neuropathy, unspecified; I10 Essential (primary) hypertension; F32.9 Major depressive disorder, single episode, unspecified; Z87.891 Personal history of nicotine dependence
CPT/HCPCS: 36415; 71010; 80053; 81003; 82550; 82553; 83605; 84484; 85025; 86777; 86778; 93005; 96360; 96361

== ENCOUNTER 2019-08-17 18:37 | Observation (INO) | payer MEDICARE ==
[2019-08-17 20:48] LABS: #Eosinphils 0.1 thou/uL (0.0-0.7); #Lymphocytes 1.3 thou/uL (1.20-3.40); #Monocytes 0.7 thou/uL (0.11-0.59); #Neutrophils 8.5 thou/uL (1.40-6.50); %Basophils 0.4 % (0.0-1.0); %Eosinophils 0.9 % (0.0-10.0); %Lymphocytes 11.8 % (21.0-51.0); %Monocytes 6.8 % (0.0-10.0); %Neutrophils 80.1 % (42.0-75.0); Hemoglobin 16.3 g/dL (14.0-18.0); Mean Corpuscular HGB CONC 35.8 g/dL (32.0-36.0); Mean Corpuscular Hemoglobin 35.1 pg (27.0-31.0); Mean Platelet Volume 6.9 fL (7.4-10.4); Platelet Count 184 thou/uL (130-400); RBC Distribution Width 11.5 % (11.5-14.5); Red Blood Cell (RBC) Count 4.64 mill/uL (4.70-6.10); White Blood Cell (WBC) Count 10.6 thou/uL (4.8-10.8)
[2019-08-17 21:13] LABS: ALT (SGPT) 18 U/L (8-55); AST (SGOT) 25 U/L (5-34); Albumin 4.3 g/dL (3.4-4.8); Alkaline Phosphatase 163 U/L (40-110); Anion Gap 16 mmol/L (10-20); BUN (Urea Nitrogen) 15 mg/dL (8.4-25.7); Calc. Creatinine Clearance 0 mL/min (70-130); Calcium 9.4 mg/dL (7.8-10.44); Carbon Dioxide 23 mmol/L (23-31); Chloride 101 mmol/L (98-107); Estimated GFR-MDRD 84; Globulin 3.1 g/dL (2.4-3.5); Glucose 313 mg/dL (83-110); Potassium 4.8 mmol/L (3.5-5.1); Protein, Total 7.4 g/dL (5.8-8.1); Sodium 135 mmol/L (136-145)
[2019-08-17] MEDS ORDERED: Adacel (T-DAP) 0.5 ML SYRINGE ONE (21:24)
[2019-08-17 22:00] LABS: Bilirubin Negative (Negative); Blood, Urine Small (Negative); Glucose, Urine (Dipstick) >=1000 mg/dL (Negative); Leukocyte Negative (Negative); Nitrite Negative (Negative); Protein, Urine (Dipstick) Trace mg/dL (Neg-Trace)
[2019-08-17 22:01] LABS: Clarity Clear (Clear)
[2019-08-17 22:05] LABS: Bacteria/HPF None Seen HPF (None Seen); Squamous Epithelial None Seen HPF (0-3)
--- NOTE | 2019-08-17 22:08 | CT ---
CT Head without IV contrast COMPARISON: 04/10/2015 HISTORY: Generalized weakness, hyponatremia. TECHNIQUE: Axial CT imaging at 5 mm intervals from vertex through skull base without contrast FINDINGS: There is no evidence of an acute infarction, hemorrhage, mass effect, or midline shift. There is decr eased attenuation seen in the periventricular white matter which is nonspecific but likely attributable to chronic small vessel ischemic changes. Again noted are remote lacunar infarctions in each basal ganglia. There is mild cerebral volume loss. The ventricular system is normal in size, shape, and position for the degree of sulcal atrophy. Mucosal thickening is seen in the left maxillary antrum with minimal increased density which could be related to inspissated secretions versus fungal infection. Vascular calcifications are seen in the distal vertebral arteries and involving the carotid siphons. Osseous structures appear intact. IMPRESSION: 1. No acute intracranial abnormality demonstrated. 2. Chronic findings not significantly changed from prior study. 3. Sinus disease left maxillary antrum.
--- NOTE | 2019-08-17 22:16 | CT ---
EXAM: CT cervical spine PROVIDED CLINICAL HISTORY: Injury. Generalized weakness, hyponatremia. TECHNIQUE: Contiguous axial CT images are obtained through the cervical spine from the skull base to the T1-2 le adarsh. Sagittal and coronal reformatted images are provided. COMPARISON: None FINDINGS: No evidence for fracture or traumatic subluxation. Scattered mild degenerative changes are seen in the cervical spine. Prominent anterior osteophytes ar e seen at multiple levels greatest at the C6-7 level. There is calcification of the anterior longitudinal ligament at the C7-T1 and T1-2 levels. No prevertebral soft tissue swelling apparent. Visualized lung apices appear clear. Visualized thyroid gland demonstrates a grossly normal nonenhanced CT appearance. Vascular calcifications are seen. IMPRESSION: No evidence for fracture or traumatic subluxation.
[2019-08-17] MEDS ORDERED: HYDROcodone/Acetaminophen 10/325 mg Tablet ONE (22:17)
--- NOTE | 2019-08-17 22:55 | PDOC.FPRHP ---
- History of Present Illness Chief Complaint: fall due to generalized weakness History of Present Illness: 73 y/o M with a pmhx of CAD W/ WV s/p X4 vessel CABG, DM II, and BPH presents to the ED after GLF due to knees giving out walking out of grocery store earlier today. Denies CP, palpitations, SOB, N/V/D. Pt has been getting weaker over the last several weeks. This is his second fall in the past year. Pt's states he has a shuffling gait, has slight hand tremor, spends most of his time in the recliner and thinks he is depressed. PT states he has loss of interest in hobbies, and feels guilt toward loosing contact with his daughter. He has tried antidepressants, but experiences side effects. currently on bupropion. ED course: Trop neg glucose 313 Hand xray, head and neck CT neg for acute process. - Allergies/Adverse Reactions Allergies Allergy/AdvReac Type Severity Reaction Status Date / Time ketorolac tromethamine Allergy Verified 10/13/15 20:00 [From Toradol] tizanidine HCl Allergy Verified 04/08/17 20:41 [From Zanaflex] tramadol HCl [From Ultracet] Allergy Verified 04/08/17 20:41 - Home Medications Medication Instructions Recorded Confirmed Type Gabapentin [Neurontin] 600 mg PO 5XD 04/27/14 04/08/17 History Insulin Glargine,Hum.Rec.Anlog 0 unit SQ HS 04/27/14 04/08/17 History [Lantus Solostar] fentaNYL 100 mcg TD Q2DAYS 04/27/14 04/08/17 History oxyCODONE HCl/Acetaminophen 1 tablet PO Q4HR PRN 04/27/14 08/18/19 History [Percocet] traZODone HCl [Desyrel] 50 mg PO HS 04/27/14 04/08/17 History Tamsulosin HCl [Flomax] 0.4 mg PO HS 07/26/15 04/08/17 History Aspirin [Aspirin EC] 81 mg PO DAILY 10/13/15 04/08/17 History HumaLOG [HumaLOG Vial] 0 unit SC PRN PRN 10/13/15 04/08/17 History Carbidopa/Levodopa [Sinemet] 1 tab PO TID #90 tablet 08/18/19 Rx Metoprolol Succinate 25 mg PO DAILY 08/18/19 08/18/19 History Pravastatin Sodium [Pravachol] 10 mg PO HS 08/18/19 08/18/19 History - History PMHx: BPH, CAD with [place] s/p 4 vessel CABG 2015. DM II with peripheral neuropathy , MDD PSHx: L-knee replacement, B knee sx, X4 vessel CABG, cholecystectomy, appendectomy FHx: mother: DM II, father due to embolus to brain after a surgical procedure Social: served in [employer], has previous IVDA and alcohol abuse, clean since 03/27/1987. Currently in AA, has not had a drink since above date. Exposure to agent orange. Quit smoking 40 years ago, smoked <10 years. - Review of Systems General: reports: fatigue. denies: fever/chills, weight/appetite/sleep changes Eyes: denies: vision changes ENT: denies: nasal congestion Respiratory: denies: cough, shortness of breath Cardiovascular: denies: chest pain, palpitation, edema Gastrointestinal: denies: nausea, vomiting, diarrhea, abdominal pain Genitourinary: denies: dysuria Skin: reports: other (scrapped L knee from fall). denies: rashes, lesions Musculoskeletal: reports: pain (B hands), stiffness (from fall) Neurological: reports: numbness (B feet), weakness (generalized) Psychological: reports: depression. denies: anxiety - Vital signs BP: 115/63 HR: 66 RR: 19 Tmax: 98.1 Pox: 98% on ra Wt: 95.3 kg - Physical Exam Constitutional: NAD, awake, alert and oriented, well developed HEENT: normocephalic and atraumatic, PERRLA, EOMI, conjunctiva clear, no scleral icterus, grossly normal vision, grossly normal hearing, MMM, oropharynx clear, other (no teeth) Neck: supple, FROM, trachea midline, no LAD, no JVD Heart: RRR, pulses present, no edema, other (2/6 systolic murmur) Lungs: CTAB, no respiratory distress, good air movement, no rales/rhonchi, no wheezing, no retractions Abdomen: soft, non-tender, bowel sounds present, no masses/distention Musculoskeletal: normal structure, normal tone, ROM grossly normal -Musculoskeletal: shuffling gait, resting pill rolling tremor of B hands, cogwheel rigidity Neurological: no focal deficit, CN II-XII intact, normal sensation Skin: no rash/lesions, good turgor, capillary refill <2 seconds, other ( abrasion on L knee) Heme/Lymphatic: no purpura, no petechia Psychiatric: normal mood and affect, good judgment and insight, intact recent and remote memory FMR H&P: Results - Labs Result Diagrams: 08/17/19 20:35 08/17/19 20:35 Lab results: WBC 10.6 thou/uL (4.8-10.8) 08/17/19 20:35 Hgb 16.3 g/dL (14.0-18.0) 08/17/19 20:35 Hct 45.4 % (42.0-52.0) 08/17/19 20:35 MCV 98.0 fL (78.0-98.0) 08/17/19 20:35 Plt Count 184 thou/uL (130-400) 08/17/19 20:35 Neutrophils % 80.1 % (42.0-75.0) H 08/17/19 20:35 Sodium 135 mmol/L (136-145) L 08/17/19 20:35 Potassium 4.8 mmol/L (3.5-5.1) 08/17/19 20:35 Chloride 101 mmol/L (98-107) 08/17/19 20:35 Carbon Dioxide 23 mmol/L (23-31) 08/17/19 20:35 BUN 15 mg/dL (8.4-25.7) 08/17/19 20:35 Creatinine 0.89 mg/dL (0.7-1.3) 08/17/19 20:35 Glucose 313 mg/dL (83-110) H 08/17/19 20:35 Calcium 9.4 mg/dL (7.8-10.44) 08/17/19 20:35 Total Bilirubin 1.0 mg/dL (0.2-1.2) 08/17/19 20:35 AST 25 U/L (5-34) 08/17/19 20:35 ALT 18 U/L (8-55) 08/17/19 20:35 Alkaline Phosphatase 163 U/L (40-110) H 08/17/19 20:35 Serum Total Protein 7.4 g/dL (5.8-8.1) 08/17/19 20:35 Albumin 4.3 g/dL (3.4-4.8) 08/17/19 20:35 Urine Ketones 40 mg/dL (Negative) A 08/17/19 21:32 Urine Blood Small (Negative) A 08/17/19 21:32 Urine Nitrite Negative (Negative) 08/17/19 21:32 Ur Leukocyte Esterase Negative (Negative) 08/17/19 21:32 Urine RBC 4-6 HPF (0-3) A 08/17/19 21:32 Urine WBC 11-20 HPF (0-3) A 08/17/19 21:32 Ur Squamous Epith Cells None Seen HPF (0-3) 08/17/19 21:32 Urine Bacteria None Seen HPF (None Seen) 08/17/19 21:32 FMR H&P: A/P - Problem List (1) Generalized weakness Current Visit: Yes Status: Acute Code(s): R53.1 - WEAKNESS (2) Physical deconditioning Current Visit: Yes Status: Acute Code(s): R53.81 - OTHER MALAISE (3) Parkinsonian features Current Visit: Yes Status: Acute Code(s): R25.9 - UNSPECIFIED ABNORMAL INVOLUNTARY MOVEMENTS (4) S/P CABG x 4 Current Visit: No Status: Acute (5) Depression Current Visit: Yes Status: Chronic Code(s): F32.9 - MAJOR DEPRESSIVE DISORDER, SINGLE EPISODE, UNSPECIFIED (6) Diabetes type 2, controlled Current Visit: Yes Status: Chronic Code(s): E11.9 - TYPE 2 DIABETES MELLITUS WITHOUT COMPLICATIONS (7) Peripheral neuropathy Current Visit: Yes Status: Chronic Code(s): G62.9 - POLYNEUROPATHY, UNSPECIFIED - Plan 73 y/o M admitted tele observation due to generalized weakness. 1. S/P GLF due to generalized weakness - increasing weakness - Placed screen for inpt rehab, as pt would benefit greatly in building strength before returning home, as he is at risk for future falls. 2. Parkinson features, without diagnosis - shuffling gait, pill rolling tremor, cogwheel rigidity - Pt does not have a diagnosis and it is suggested to have workup in near future. - Out pt neurology consult 3. MDD - Pt admits to loss of interest and guilty feelings - Pt has tried numerous depression medications and usually very sensitive to SE' s. - suggesting outpt counseling. - Will order TSH, No anemia present on CBC. 4. WV, S/P X4 vessel CABG - Denies current CP - Trop neg 5. DM II - continue home medications - Glucose 313 - Mild SSI, AC/HS accuchecks 6. BPH - continue home meds 7. Diabetic nephropathy - continue home gabapentin 8. Social hx of previous IVDA and [place] - RPR, HIV, Hep labs pending Code status: full code diet: CC DVT ppx: lovenox Dispo: stable, admit to tele obs PCP Dr. Garcia FMR H&P: Upper Level - Plan Date/Time: 08/17/19 [id number] I, Nazario Lilly MD, have evaluated this patient and agree with findings/ plan as outlined by r d intern resident. Pertinent changes/additions are listed here. Physical Deconditioning - reports sedentary lifestyle - Concern for possible neurological disease - Opposed to rehab stay - Willing to try PT at home - Likely need outpatient Neurology evaluation All other chronic conditions reviewed and medications to be restarted as appropriate. PCP: Dr. Garcia CODE STATUS: FULL CODE Disposition: Stable, will admit for Observation and likely discharge tomorrow. Addendum - Attending - Attending Attestation Date/Time: 08/18/19 [id number] I personally evaluated the patient and discussed the management with Dr. Kaur I agree with the History, Examination, Assessment and Plan documented above with any addition or exceptions noted below. Presents with generalized weakness. states he has been sedentary since nursing home. Also reports shuffling gait. Mother had parkinson's. Exam remarkable for limb rigidity. Offered placement at rehab but declined. Will start carbidopa/levodopa, arrange HH with PT/OT, and contact PCP to arrange outpatient neurology. Plan to d/c once HH services arranged.
--- NOTE | 2019-08-17 22:55 | RAD ---
THREE VIEWS RIGHT HAND: History: Patient fell at [facility]. Injury after fall. Weakness. FINDINGS: No acute fracture or dislocation is seen. Mild osteoarthritis is seen involving the metacarpal phalan geal joint of the thumb. IMPRESSION: No acute osseous abnormality. POS: OFF
[2019-08-17 23:57] LABS: Troponin I Less than 0.010 ng/mL (< 0.028)
[2019-08-18] MEDS ORDERED: Insulin Glargine 25 UNITS in Pre-Filled Syringe 1 EACH SC SCH ×2 (00:21→21:00)
[2019-08-18] MEDS ORDERED: Dextrose 5% in Water 1,000 ML IV PRN (00:30)
[2019-08-18] MEDS ORDERED: HumaLOG 300 UNITS/3 ML VIAL SC PRN ×2 (00:30)
[2019-08-18] MEDS ORDERED: Dextrose 50% Abboject 50 ML SYRINGE SLOW IVP PRN (00:30)
[2019-08-18] MEDS ORDERED: traZODone HCl 50 MG TAB PO SCH ×2 (00:45→21:00)
[2019-08-18] MEDS ORDERED: traZODone HCl 50 MG TAB ONE ×2 (02:08→03:30)
[2019-08-18 02:55] LABS: Troponin I 0.011 ng/mL (< 0.028)
[2019-08-18 03:05] LABS: HBSAg Index 0.22 S/CO (0-0.99); HIV (1/2) Antibody/Antigen Non-Reactive (NonReactive); HIV 1/2 INDEX 0.11 S/CO (<1.00); Hep B Surf Ag Non-Reactive S/CO (NonReactive)
[2019-08-18 03:11] LABS: HBSAB Concentration 53.69 mIU/mL; Hep B Surf AB Reactive (NonReactive)
[2019-08-18 04:23] LABS: Hep B Core Total Ab Reactive (NonReactive); Hep B Core Total Index 10.87 S/CO (0-0.79); Syphilis Antibody Nonreactive (Nonreactive); Syphilis Antibody Index 0.03 S/CO (<1.00 Non-Reactive)
[2019-08-18] MEDS ORDERED: Non-Formulary Item 1 EACH (Oxycodone Hcl/Acetaminophen [Percocet] 1 TABLET) PO PRN (07:18)
[2019-08-18] MEDS ORDERED: oxyCODONE/Acetaminophen 5 mg/325 mg Tablet PO PRN (07:22)
[2019-08-18] MEDS ORDERED: Gabapentin 300 MG CAP PO SCH (08:00)
[2019-08-18] MEDS ORDERED: Aspirin 81 mg Enteric Coated Tablet PO SCH (09:00)
[2019-08-18] MEDS ORDERED: Enoxaparin Sodium 40 MG/0.4 ML SYRINGE SC SCH (09:00)
[2019-08-18] MEDS ORDERED: fentaNYL 100 mcg/hour Patch TD SCH (09:00)
[2019-08-18] MEDS ORDERED: Aspirin Chewable 81 MG TAB ONE (09:07)
[2019-08-18] MEDS ORDERED: Enoxaparin Sodium 40 MG/0.4 ML SYRINGE ONE ×2 (09:07→09:10)
[2019-08-18] MEDS ORDERED: Carbidopa/Levodopa 10-100 mg Tablet PO SCH ×2 (10:45→15:00)
[2019-08-18] MEDS ORDERED: Pravastatin Sodium 20 MG TAB PO SCH (21:00)
[2019-08-18] MEDS ORDERED: Non-Formulary Item 1 EACH (Insulin Glargine,Hum.Rec.Anlog [Lantus Solostar] 25 UNIT) SQ SCH (21:00)
[2019-08-18] MEDS ORDERED: Tamsulosin HCl 0.4 MG CAP PO SCH (21:00)
--- NOTE | 2019-08-19 07:58 | DIS ---
DATE OF ADMISSION: 08/17/2019 DATE OF DISCHARGE: 08/18/2019 RESIDENT: Kezia Mendoza MD ADMITTING ATTENDING: Zac Brice MD DISCHARGE ATTENDING: Zac Brice MD CONSULTATIONS: None. PROCEDURES: 1. Cervical spine CT on 08/17/2019 showing no evidence for fracture or traumatic subluxation. 2. Brain CT on 08/17/2019, showing no acute intracranial abnormality. Chronic findings that were not changed from the prior study. 3. A hand x-ray done on 08/17/2019, showing no acute osseous abnormality. DISCHARGE MEDICATIONS: Continue all home medications. The only new medication that was added was carbidopa levodopa 10/100 one tab p.o. three times daily. DISCONTINUED MEDICATIONS: None. PRIMARY DIAGNOSES: 1. Physical deconditioning. 2. Parkinsonism. SECONDARY DIAGNOSES: 1. Coronary artery disease, status post coronary artery bypass grafting. 2. Type 2 diabetes. 3. BPH. 4. Diabetic nephropathy. 5. Major depressive disorder. HISTORY OF PRESENT ILLNESS/HOSPITAL COURSE: This is a 73-year-old male who presented to the ER after a ground level fall due to his knees giving out while walking of the grocery store. The patient had been getting weaker over the last several weeks. This was his second fall in the last year or so. The also describes that the patient has a shuffling gait, a slight hand tremor in both hands, he has become more depressed and spends most of his time in his recliner. The patient does endorse a loss of interest in hobbies and has felt guilty about losing contact with his daughter. He has tried several antidepressants but has side effects with them. All imaging was negative in the ER. Troponins were negative. Glucose was found to be elevated at 313. The patient's vital signs remained stable throughout his stay. The patient was going to be admitted for generalized weakness and recommended rehab versus home health with physical therapy. The patient opted to be sent home with physical therapy. The patient was able to be discharged from the ER. He will need to follow up with PCP, Dr. Garcia, to have some home health and physical therapy set up outpatient. The patient was noted to have several parkinsonism features such as a shuffling gait, a rolling hand tremor, and mild cogwheel rigidity along with a flat affect. The patient was started on carbidopa levodopa and this was sent home with the patient. He will need to follow up with his PCP for this issue with a Neurology consult as well. DISPOSITION: Stable. DISCHARGE INSTRUCTIONS: 1. Location: Home. 2. Activity. No restrictions. 3. Diet. Heart healthy. 4. Follow up with PCP, Dr. Garcia, within 7 days. Job ID: [id number] MTDD
== END 2019-08-18 12:00 | disposition home or self-care (01) ==
LOC: ERS 18:37 → ERHOLD 22:48
PROVIDERS: ADMIT Emergency Medicine; ATTEND Emergency Medicine
DX: R53.81 Other malaise (principal); G20 Parkinson's disease; I25.10 Atherosclerotic heart disease of native coronary artery without angina pectoris; E11.21 Type 2 diabetes mellitus with diabetic nephropathy; E11.42 Type 2 diabetes mellitus with diabetic polyneuropathy; F32.9 Major depressive disorder, single episode, unspecified; N40.0 Benign prostatic hyperplasia without lower urinary tract symptoms; Z79.4 Long term (current) use of insulin; Z79.82 Long term (current) use of aspirin; Z79.899 Other long term (current) drug therapy; Z88.5 Allergy status to narcotic agent; Z88.6 Allergy status to analgesic agent; Z87.891 Personal history of nicotine dependence; Z88.8 Allergy status to other drugs, medicaments and biological substances; Z95.1 Presence of aortocoronary bypass graft; W18.30XA Fall on same level, unspecified, initial encounter; Y92.512 Supermarket, store or market as the place of occurrence of the external cause
CPT/HCPCS: 36416; 70450; 72125; 80053; 81003; 81015; 84443; 84484; 85025; 86704; 86706; 86780; 87340; 87389; 87521; 90471; 90715; 93005; 96372; G0378; J1650; J1815; L0120

== ENCOUNTER 2019-12-10 16:03 | Outpatient (CLI) | payer MEDICARE ==
--- NOTE | 2019-12-10 16:27 | RAD ---
XR Foot Lt 3 View STANDARD HISTORY: left foot pain FINDINGS: No fracture or dislocation is identified. There are posterior and plantar calcaneal spurs. No bony de struction or periosteal reaction is seen. If there is high clinical suspicion for osteomyelitis, further evaluation with MRI should be performe d.
== END 2019-12-10 16:04 | disposition home or self-care (01) ==
LOC: BICRAD 16:03
PROVIDERS: ATTEND Family Medicine
DX: M79.672 Pain in left foot (principal)

== ENCOUNTER 2020-03-09 14:53 | Outpatient (CLI) | payer MEDICARE ==
--- NOTE | 2020-03-09 15:42 | CT ---
CT of abdomen and pelvis: 03/09/2020 COMPARISON: 04/09/2017 HISTORY: Left flank pain, history of left renal calculus TECHNIQUE: Axial CT imaging at 5 mm intervals from lung bases through pubic symphysis without contras t. Coronal reformatted imaging obtained. FINDINGS: Lack of contrast media limits assessment of the viscera, bowel, vascular structures, and fo r lymphadenopathy. The visualized lung bases are unremarkable. There are cholecystectomy clips present. No free intraper itoneal air or fluid is seen. Coronary arterial calcifications are present. Hepatic and splenic granulomata are present. There is fatty atrophy of the pancreas. Stable moderate-sized duodenal diverticulum. Stable calcification within the right adrenal gland. Lef t adrenal gland is unremarkable. There is a tiny exophytic hypodensity within the midpole of the left kidney, too small to characteriz e. There is a stable cyst in the lateral midpole right kidney. There is no nephrolithiasis or evidence of obstructive uropathy on the right. There is a large stone within the renal pelvis on the left measuring 2.0 x 1.3 x 1.6 cm. The urotheli um in the region of the renal pelvis adjacent to this stone is markedly thickened and demonstrates peripheral irregularity with stranding extending into the adjacent fat. In addition, there are 2 subc entimeter midpole nonobstructing left renal calculi. There is also a nonobstructing lower pole intrarenal calculus on the left measuring 1 cm in craniocaudal dimension. There is mild hydronephrosi s within the mid pole and upper pole of the left kidney. No evidence for hydronephrosis or hydroureter is seen on the left. Limited evaluation of the large and small bowel demonstrates no evidence for obstruction or bowel inf lammation. There is scattered atherosclerotic calcifications involving the abdominal aorta and its branches. 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 Multilevel degenerative change noted within the lower lumbar spine with disc space narrowing and degenerative endplate change and fa cet hypertrophy. IMPRESSION: Multiple left renal calculi, including a large stone within the renal pelvis measuring up to 2 cm. The urothelium associated with the renal pelvis is markedly thickened and there is adjacent stranding of the fat in the region of the left renal hilum. This stranding suggests superimp osed inflammatory air or infectious process. Urothelial neoplasm adjacent to this stone cannot be excluded. There is a mild degree of hydronephrosis on the left in the mid pole and upper pole region. Additional intrarenal calculi as detailed above. CODE T
== END 2020-03-09 14:54 | disposition home or self-care (01) ==
LOC: BICCT 14:53
PROVIDERS: ATTEND Urology
DX: N13.2 Hydronephrosis with renal and ureteral calculous obstruction (principal)
CPT/HCPCS: 74176

== ENCOUNTER 2020-03-31 07:58 | Outpatient (CLI) | payer MEDICARE, OTHER ==
[2020-03-31 14:02] LABS: PTT 30.6 sec (22.9-36.1); Prothrombin Time 13.8 sec (12.0-14.7)
[2020-03-31 14:16] LABS: Hemoglobin 15.7 g/dL (14.0-18.0); Mean Corpuscular Hemoglobin 34.4 pg (27.0-31.0); Mean Corpuscular Volume 98.2 fL (78.0-98.0); Mean Platelet Volume 7.1 fL (7.4-10.4); Platelet Count 199 thou/uL (130-400); RBC Distribution Width 11.8 % (11.5-14.5); Red Blood Cell (RBC) Count 4.55 mill/uL (4.70-6.10); White Blood Cell (WBC) Count 6.1 thou/uL (4.8-10.8)
[2020-03-31 14:36] LABS: Bilirubin Negative (Negative); Blood, Urine 2+ (Negative); Clarity Clear (Clear); Glucose, Urine (Dipstick) Greater than 1000 mg/dL (Negative); Ketone, Urine Negative (Negative); Leukocyte 25 Leu/uL (Negative); Mucous/LPF 1+ LPF (<2+); Nitrite Negative (Negative); Protein, Urine (Dipstick) 50 mg/dL (Neg-Trace); RBC/HPF Greater than 50 HPF (0-3); Specific Gravity, Urine 1.029 (1.002-1.036); Squamous Epithelial None Seen HPF (0-3)
[2020-03-31 14:37] LABS: Anion Gap 12 mmol/L (10-20); BUN (Urea Nitrogen) 13 mg/dL (8.4-25.7); Calc. Creatinine Clearance 0 mL/min (70-130); Calcium 8.6 mg/dL (7.8-10.44); Carbon Dioxide 27 mmol/L (23-31); Chloride 101 mmol/L (98-107); Estimated GFR-MDRD Greater than 90; Glucose 244 mg/dL (83-110); Potassium 4.6 mmol/L (3.5-5.1); Sodium 135 mmol/L (136-145)
[2020-03-31 14:52] LABS: Bacteria/HPF None Seen HPF (None Seen); Calcium Oxalate Crystals 1+ HPF (None Seen)
[2020-03-31 18:56] LABS: SARS-CoV-2 MS2 Positive; SARS-CoV-2 N Gene Negative; SARS-CoV-2 S Gene Negative; SARS-CoV-2 by NAA Not Detected (NotDetected); SARS-CoV-2 orf1ab Negative
--- NOTE | 2020-04-02 16:51 | EKG ---
Test Reason : EKG Blood Pressure : / mmHG Vent. Rate : 064 BPM Atrial Rate : 064 BPM P-R Int : 180 ms QRS Dur : 096 ms QT Int : 418 ms P-R-T Axes : 029 026 061 degrees QTc Int : 431 ms Normal sinus rhythm Possible Inferior infarct , age undetermined Cannot rule out Anterior infarct , age undetermined Abnormal ECG No previous ECGs available Confirmed by DR. Jackie CALIXTO ([id number]) on 04/02/2020 4:51:22 PM Referred By: DR GARLAND Confirmed By:DR. Jackie CALIXTO
== END 2020-03-31 07:59 | disposition home or self-care (01) ==
LOC: LABBT 07:58
PROVIDERS: ATTEND Urology
DX: Z01.818 Encounter for other preprocedural examination (principal); Z20.828 Contact with and (suspected) exposure to other viral communicable diseases
CPT/HCPCS: 80048; 81001; 85027; 85610; 85730; 86850; 86900; 86901; 87086; 93005; U0003; 87635; 93010

== ENCOUNTER 2020-04-05 06:41 | Observation (INO) | payer MEDICARE ==
[2020-04-04 14:31] VITALS: BMI 29.7
[2020-04-05] MEDS ORDERED: Iothalamate Meglumine 60% 50 ML VIAL FS ONE (07:03)
[2020-04-05] MEDS ORDERED: Levofloxacin 500 mg/D5W 100 ml Premix Bag ONE (07:21)
[2020-04-05] MEDS ORDERED: Fentanyl 100 MCG/2 ML VIAL ONE ×3 (08:33→12:56)
[2020-04-05] MEDS ORDERED: Bupivacaine PF 0.5% 30 ML VIAL ONE (08:46)
[2020-04-05] MEDS ORDERED: Iopamidol 300 61% 50 ML VIAL FS ONE (09:11)
[2020-04-05] MEDS ORDERED: Lidocaine 1% PF 5 ML VIAL ONE (09:54)
[2020-04-05] MEDS ORDERED: Ondansetron PF 4 MG/2 ML Vial ONE (09:54)
[2020-04-05] MEDS ORDERED: Dexamethasone 20 MG/5 ML VIAL ONE (09:54)
[2020-04-05] MEDS ORDERED: PROPOFOL 200 MG/20 ML VIAL ONE (09:54)
[2020-04-05] MEDS ORDERED: Rocuronium Bromide 10 MG/ML (10ML VIAL) ONE (09:54)
[2020-04-05] MEDS ORDERED: SUGAMMADEX SODIUM 200 MG/2 ML VIAL ONE (11:21)
[2020-04-05] MEDS ORDERED: Promethazine HCl 25 MG/ML VIAL SLOW IVP PRN ×2 (11:43→12:56)
[2020-04-05] MEDS ORDERED: Ondansetron HCl/PF 4 MG/2 ML Vial IVP PRN ×2 (11:43→12:56)
[2020-04-05] MEDS ORDERED: Promethazine HCl 25 MG/ML VIAL IM PRN ×3 (11:43→13:26)
--- NOTE | 2020-04-05 12:08 | SPC ---
PROCEDURE: Left antegrade pyelogram in placement of guidewire in right ureter. PROVIDED CLINICAL HISTORY: Left nephrolithiasis COMPARISON: CT abdomen on 03/09/2020 TECHNIQUE: After informed consent was obtained, the patient was placed on the operating room table in the prone position. General endotracheal anesthesia was performed by the anesthesiology department. A catheter was placed in the right ureter in a retrograde fashion prior to this procedure. Left renal c ollecting system was opacified via the retrograde catheter. Attempt at accessing a posterior calyx midportion left kidney was unsuccessful. The anterior and posterior calyx in the inferior pole left k idney were noted to be closely adjacent to one another on the CT scan examination. A 22-gauge Chiba needle was advanced into the presumed posterior calyx. Antegrade pyelogram was performed demonstratin g distention of the collecting system with contrast. The needle was exchanged over a 0.018 inch guidewire followed by placement of a 6 [place] AccuStick sheath with stiff inner cannula and dilator. Contrast injection confirms placement in the collecting system. The introducer sheath was exchanged over a 0.035 inch Amplatz guidewire for a 5 [place] Berenstein cat heter. The Berenstein catheter and an angled guidewire were manipulated into the distal left ureter. The Berenstein catheter was exchanged for serial tissue dilators up to 12 [place], and an 11 F rench double lumen catheter was placed into the proximal left ureter. A 0.035 inch Amplatz guidewire was placed into the distal left ureter. Nephrostomy tract dilatation and laser nephrolithotomy was performed by Dr. Leon. Please see brigitte t report for further details. IMPRESSION: 1. Left nephrolithiasis with large calculus in the left renal pelvis. 2. Technically successful left antegrade pyelogram and placement of a guidewire into the distal left ureter. 3. Laser nephrolithotomy was performed by Dr. Leon, please see that report for further details.
[2020-04-05] MEDS ORDERED: Meperidine HCl/PF 25 MG/ML VIAL ONE (12:14)
[2020-04-05] MEDS ORDERED: HYDROmorphone 2 MG/ML VIAL ONE ×3 (12:56→13:56)
[2020-04-05] MEDS ORDERED: HYDROmorphone 2 MG/ML VIAL SLOW IVP PRN (12:56)
[2020-04-05] MEDS ORDERED: oxyCODONE/Acetaminophen 5 mg/325 mg Tablet PO PRN (12:59)
[2020-04-05] MEDS ORDERED: HYDROmorphone 10 mg/100 ml CADD IVPB PRN (13:26)
[2020-04-05] MEDS ORDERED: diphenhydrAMINE 25 MG CAP PO PRN (13:26)
[2020-04-05] MEDS ORDERED: Zolpidem Tartrate 5 MG TAB PO PRN ×2 (13:26→16:47)
[2020-04-05] MEDS ORDERED: diphenhydrAMINE 50 MG/ML VIAL IVP PRN ×2 (13:26→16:47)
[2020-04-05] MEDS ORDERED: Naloxone HCl 0.4 mg/ml Vial IV PRN (13:26)
[2020-04-05] MEDS ORDERED: diphenhydrAMINE 50 MG/ML VIAL IM PRN (13:26)
[2020-04-05] MEDS ORDERED: Ondansetron PF 4 MG/2 ML Vial IVP PRN (13:26)
[2020-04-05] MEDS ORDERED: Communication Order-Pharmacy FS SCH (13:30)
[2020-04-05] MEDS ORDERED: fentaNYL 100 mcg/hour Patch TD SCH (15:00)
[2020-04-05] MEDS ORDERED: Morphine 4 MG/ML VIAL SLOW IVP PRN (16:47)
[2020-04-05] MEDS ORDERED: HYDROcodone/Acetaminophen 10/325 mg Tablet PO PRN (16:47)
[2020-04-05] MEDS ORDERED: hydrALAZINE 20 MG/ML VIAL SLOW IVP PRN (16:47)
[2020-04-05] MEDS ORDERED: Hyoscyamine Sulfate SL 0.125 mg Tablet SL PRN (16:47)
--- NOTE | 2020-04-05 16:59 | OP ---
DATE OF PROCEDURE: 04/05/2020 PREOPERATIVE DIAGNOSIS: Left renal stones. POSTOPERATIVE DIAGNOSIS: Left renal stones. PROCEDURES PERFORMED: Left percutaneous nephrolithotomy, cystoscopy with left ureteral catheterization, antegrade ureteral stent placement, nephrostogram, left nephrostomy tube placement. ANESTHESIA: General. COMPLICATIONS: None. BLOOD LOSS: 100 mL. SPECIMEN: Stone fragments. DESCRIPTION OF PROCEDURE: After informed consent, the patient was taken to the operating room. Anesthesia was established with the patient on his stretcher. He was prepped and draped in the supine position. A time-out was performed showing correct patient, site, and procedure. Preoperative antibiotics were administered. I inserted the flexible cystoscope through the urethra noting large coapting lobes of the prostate. The bladder was entered and the left ureteral orifice was cannulated with a wire, which was past into the ureter. A Pollack catheter was then placed over this. A Parikh catheter was then placed alongside the Pollack through the urethra with 10 mL instilled in the balloon draining yellow urine. The patient was then prepped and draped in the prone position on the operating table. Access through an anterior lower pole was obtained by Dr. Rice, which will be dictated separately. I passed a dual-lumen access catheter over the previously placed wire and used this to place a second wire down the ureter into the bladder. The dual-lumen was removed. An incision made in the left flank at the puncture site. The dilation balloon was passed over the Amplatz wire with the tip of the balloon touching the stone in the lower pole calyx. The balloon was inflated and then the access sheath advanced over the balloon with the tip just touching the stone. The balloon was then deflated and then nephroscope passed through the access sheath until the stone in the lower pole calyx was identified. This was removed with a grasper and passed off. The balloon was then reinserted to the level of the renal pelvis stone, reinflated and the access sheath advanced at this point. The balloon was then deflated and the nephroscope replaced. Under fluoroscopy, the scope appeared to be at the location of the stone, however, I had a very difficult time accessing it. The stone in the pelvis was fairly posterior, which was difficult to access through the anterior calyx. I was able to use the CyberWand to treat all the stone fragments that I was able to identify. Under fluoroscopy, there did not appear to be any stone fragments remaining. A completion nephrostogram was performed showing no obvious filling defects. The access sheath and scope were removed and a 6 x 26 double-J ureteral stent was positioned over the wire with a curl in the kidney and curl in the bladder under fluoroscopic guidance. I then placed a Councill tip catheter over the second wire into the lower pole calyx with 3 mL instilled in the balloon. Finally, a Pollack catheter was passed through this down the ureter to allow easy access should this be required. The incision site was closed with one vertical mattress suture and then the nephrostomy tube sutured in place with Vicryl suture. The nephrostomy site was dressed with gauze and tape. The patient was then awoken from anesthesia, transferred back to his hospital bed and taken to PACU in stable condition, where he will be admitted overnight. Job ID: [id number]
[2020-04-05] MEDS ORDERED: Docusate 100 MG CAP PO SCH (17:15)
[2020-04-05] MEDS ORDERED: Tamsulosin HCl 0.4 MG CAP PO SCH (17:15)
[2020-04-05] MEDS: Gabapentin 300 MG CAP PO SCH ×3 (17:30→23:51)
[2020-04-05] MEDS: Sodium Chloride 0.9% 1,000 ML IV SCH (17:30)
[2020-04-05] MEDS ORDERED: Non-Formulary Item 1 EACH (Insulin Glargine,Hum.Rec.Anlog [Lantus Solostar] 100 UNIT/ML P SQ SCH (21:00)
[2020-04-05] MEDS ORDERED: Simvastatin 5 MG TAB PO SCH (21:00)
[2020-04-05] MEDS ORDERED: Bupropion 150 MG XL TAB PO SCH (21:00)
[2020-04-05] MEDS ORDERED: CeleCOXIB 100 MG CAP PO SCH (21:00)
[2020-04-05] MEDS ORDERED: Insulin Glargine 40 UNITS in Pre-Filled Syringe 1 EACH SC SCH (21:00)
[2020-04-05] MEDS ORDERED: traZODone HCl 50 MG TAB PO SCH (21:00)
[2020-04-05] MEDS ORDERED: Oxybutynin 5 MG TAB PO SCH (21:00)
[2020-04-06] MEDS: Sodium Chloride 0.9% 1,000 ML IV SCH (04:00)
[2020-04-06 05:51] LABS: Mean Corpuscular HGB CONC 34.6 g/dL (32.0-36.0); Mean Corpuscular Hemoglobin 34.8 pg (27.0-31.0); Mean Platelet Volume 6.7 fL (7.4-10.4); Platelet Count 186 thou/uL (130-400); RBC Distribution Width 11.4 % (11.5-14.5); Red Blood Cell (RBC) Count 3.74 mill/uL (4.70-6.10); White Blood Cell (WBC) Count 13.2 thou/uL (4.8-10.8)
[2020-04-06 06:05] LABS: Anion Gap 13 mmol/L (10-20); BUN (Urea Nitrogen) 14 mg/dL (8.4-25.7); Calc. Creatinine Clearance 134 mL/min (70-130); Calcium 8.1 mg/dL (7.8-10.44); Carbon Dioxide 22 mmol/L (23-31); Chloride 103 mmol/L (98-107); Estimated GFR-MDRD Greater than 90; Glucose 148 mg/dL (83-110); Potassium 4.6 mmol/L (3.5-5.1); Sodium 133 mmol/L (136-145)
[2020-04-06] MEDS: Gabapentin 300 MG CAP PO SCH ×2 (08:22→11:41)
[2020-04-06] MEDS ORDERED: Docusate 100 MG CAP PO SCH (09:00)
[2020-04-06] MEDS ORDERED: HumaLOG 300 UNITS/3 ML VIAL SC SCH (09:00)
[2020-04-06] MEDS ORDERED: Tamsulosin HCl 0.4 MG CAP PO SCH (09:00)
[2020-04-06] MEDS ORDERED: Fentanyl 100 MCG/2 ML VIAL SLOW IVP PRN (11:15)
[2020-04-06] MEDS ORDERED: fentaNYL 100 mcg/hour Patch TD SCH (11:15)
--- NOTE | 2020-04-06 11:32 | CT ---
CT ABDOMEN WITHOUT CONTRAST: INDICATION: Stone evaluation. Post percutaneous drain placement and nephrolithotomy. COMPARISON: Comparison is made to CT Abdomen and pelvis 03/09/2020. FINDINGS: Left percutaneous nephrostomy catheter is in place from a posterior approach and appears adequately p ositioned. This enters via the lower pole of the left kidney. There is a left ureteral stent in remy ce with only the mid and proximal portion visualized on this exam. There continues to be mild left hydronephrosis with prominence of the left pelvis. Surrounding perip elvic inflammatory haziness and stranding which also extends to the proximal left ureter. Tiny stone fragments remain in the left renal pelvis. No definite calculus is seen along the course of the lef t ureter. Lung bases show tiny effusions and mild bibasilar atelectasis. The liver, spleen, pancreas, and righ t kidney appear unchanged from the prior exam. IMPRESSION: 1. Left percutaneous nephrostomy catheter with left ureteral stent. Mild persistent left hydronephr osis with inflammatory stranding around the left pelvis and proximal left ureter. 2. Numerous tiny stone fragments remain in the left renal pelvis. POS: AGW
[2020-04-06 11:40] VITALS: BP 119/75; TEMP 98.3
--- NOTE | 2020-04-07 15:24 | DIS ---
DATE OF ADMISSION: 04/05/2020 DATE OF DISCHARGE: 04/06/2020 DISCHARGE DIAGNOSIS: Left renal pelvis stone. PROCEDURE: Left percutaneous nephrolithotomy. HOSPITAL COURSE: The patient underwent left percutaneous nephrolithotomy on April 05. There were no surgical complications, however, access was performed through an anterior calyx, which made accessing the renal pelvis somewhat difficult. The lab work the following morning showed stable creatinine and hemoglobin. CT scan on hospital day #1 showed only very small residual fragments of stone in the renal pelvis. After that, I removed his nephrostomy tube. He was having minimal discomfort, tolerating diet, and was ready for discharge home. DISCHARGE MEDICATIONS: 1. Oxybutynin. 2. Bactrim. As well as continuing all home medications. DISCHARGE PLAN: Follow up on April 25 for stent removal. Job ID: [id number]
== END 2020-04-06 13:55 | disposition home or self-care (01) ==
LOC: SDC 06:41 → EDSTATUS 10:00 → SURG B 16:49
PROVIDERS: ADMIT Urology; ATTEND Urology
PROC: 0TC13ZZ Extirpation of Matter from Left Kidney, Percutaneous Approach (ICD-10-PCS; principal; 2020-04-05)
DX: N20.0 Calculus of kidney (principal); N32.81 Overactive bladder; N40.1 Benign prostatic hyperplasia with lower urinary tract symptoms; I10 Essential (primary) hypertension; E11.9 Type 2 diabetes mellitus without complications; E78.00 Pure hypercholesterolemia, unspecified; Z79.4 Long term (current) use of insulin; Z79.899 Other long term (current) drug therapy; Z88.5 Allergy status to narcotic agent; Z88.6 Allergy status to analgesic agent; Z88.8 Allergy status to other drugs, medicaments and biological substances
CPT/HCPCS: 50437; 74150; 80048; 82962 ×2; 85027; 96361 ×2; G0378 ×2; 36415; 36416; J1100; J1170; J1815; J1956; J2175; J2405; J2704; J3010; Q9967; S0020

== ENCOUNTER 2022-09-09 15:00 | Inpatient (IN) | payer MEDICARE, MEDICAID ==
[~2022-09-09 15:00] MED LIST: Iopamidol-370 76% 500 ML MDV (1 ML CHARGE) ONE
[2022-09-09 15:38] LABS: #Lymphocytes 0.5 thou/uL (1.20-3.40); #Monocytes 0.1 thou/uL (0.11-0.59); #Neutrophils 10.6 thou/uL (1.40-6.50); %Basophils 0.1 % (0.0-1.0); %Eosinophils 0.1 % (0.0-10.0); %Lymphocytes 4.5 % (21.0-51.0); %Monocytes 0.8 % (0.0-10.0); %Neutrophils 94.6 % (42.0-75.0); Hemoglobin 15.1 g/dL (14.0-18.0); Mean Corpuscular HGB CONC 34.6 g/dL (32.0-36.0); Mean Corpuscular Hemoglobin 35.4 pg (27.0-31.0); Mean Platelet Volume 6.1 fL (7.4-10.4); Platelet Count 222 10x3/uL (130-400); RBC Distribution Width 12.6 % (11.5-14.5); Red Blood Cell (RBC) Count 4.26 mill/uL (4.70-6.10); White Blood Cell (WBC) Count 11.2 10x3/uL (4.8-10.8)
[2022-09-09 15:52] LABS: INR-International Normal Ratio 1.5; PTT 32.8 sec (22.9-36.1); Prothrombin Time 18.5 sec (12.0-14.7)
[2022-09-09] MEDS ORDERED: Cefepime 2 GM VIAL ONE (16:13)
[2022-09-09 16:25] LABS: ALT (SGPT) 11 U/L (8-55); AST (SGOT) 17 U/L (5-34); Albumin 3.7 g/dL (3.4-4.8); Alkaline Phosphatase 153 U/L (40-110); Anion Gap 16 mmol/L (10-20); BUN (Urea Nitrogen) 18 mg/dL (8.4-25.7); Bilirubin, Total 1.8 mg/dL (0.2-1.2); CK (CPK) 13 U/L (30-200); CRP (Inflammatory) 14.07 mg/dL (= or < 0.5); Calc. Creatinine Clearance 0 mL/min (70-130); Calcium 9.1 mg/dL (7.8-10.44); Carbon Dioxide 23 mmol/L (23-31); Chloride 101 mmol/L (98-107); Estimated GFR 95; Glucose 174 mg/dL (83-110); Potassium 4.4 mmol/L (3.5-5.1); Protein, Total 6.7 g/dL (5.8-8.1); Sodium 136 mmol/L (136-145)
[2022-09-09 16:37] LABS: Acetaminophen Less than 10.0 mcg/mL (10.0-30.0); Alcohol Less than 10 mg/dL (Less than 10); Salicylate Less than 8.0 mg/dL (15.0-30.0)
[2022-09-09 16:50] LABS: SARS-CoV-2 NAA Rapid Test Not Detected (NotDetected)
[2022-09-09] MEDS ORDERED: NOREPINEPHRINE 8 MG/250 ML-D5W 250 ML ONE (17:08)
[2022-09-09] MEDS ORDERED: Diltiazem 125 MG/25 ML SDV ONE (17:45)
[2022-09-09] MEDS ORDERED: Vancomycin 1 GM/200 ML (FROZEN) BAG ONE (19:08)
[2022-09-09 19:12] LABS: Bacteria/HPF 3+ HPF (None Seen); Bilirubin Negative (Negative); Blood, Urine 3+ (Negative); Clarity Extra Turbid (Clear); Glucose, Urine (Dipstick) Normal (Negative); Ketone, Urine 20 mg/dL (Negative); Leukocyte 500 Leu/uL (Negative); Nitrite Negative (Negative); Protein, Urine (Dipstick) 70 mg/dL (Neg-Trace); RBC/HPF Greater than 50 HPF (0-3); Specific Gravity, Urine 1.041 (1.002-1.036); Squamous Epithelial None Seen HPF (0-3); Urobilinogen Normal mg/dL (Less than 2); WBC/HPF Greater than 50 HPF (0-3); pH, Urine 5.5 (5.0-9.0)
[2022-09-09 19:18] LABS: Amphetamine Not Detected (NotDetected); Barbiturates Screen Not Detected (NotDetected); Benzodiazepine Screen Not Detected (NotDetected); Cocaine Metabolite Screen Not Detected (NotDetected); Methadone Not Detected (NotDetected); Methamphetamine Not Detected (NotDetected); Opiate Screen Detected (NotDetected); Oxycodone Screen Detected (NotDetected); Phencyclidine (PCP) Not Detected (NotDetected); THC/Cannabinoid Screen Not Detected (NotDetected); Tricyclic Screen Not Detected (NotDetected)
[2022-09-09] MEDS ORDERED: Fleet Enema 133 ML BOT FS SCH (19:45)
[2022-09-09] MEDS ORDERED: Insulin Regular 300 UNITS/3 ML VIAL SC PRN (20:04)
[2022-09-09] MEDS ORDERED: Acetaminophen 325 MG TAB PO PRN (20:04)
[2022-09-09] MEDS ORDERED: Electrolyte Replacement Protocol 1 EACH IVPB PRN (20:55)
[2022-09-09] MEDS ORDERED: Dextrose 50% Abboject 50 ML SYRINGE SLOW IVP PRN (20:56)
[2022-09-09] MEDS ORDERED: Dextrose 5% in Water 1,000 ML IV PRN (20:56)
[2022-09-09] MEDS ORDERED: HumaLOG 300 UNITS/3 ML VIAL SC PRN (20:56)
[2022-09-09] MEDS ORDERED: Lactated Ringer's 1,000 ML IV SCH (21:00)
[2022-09-09] MEDS ORDERED: Meropenem 2 GM in Sodium Chloride 0.9% 100 ML IVPB SCH (22:00)
[2022-09-09] MEDS ORDERED: Meropenem 1 GM in Sodium Chloride 0.9% 100 ML IVPB SCH (22:45)
[2022-09-09 22:46] LABS: Lactic Acid 1.6 mmol/L (0.5-2.2)
[2022-09-10] MEDS ORDERED: Lactated Ringer's 500 ML IV SCH (00:45)
[2022-09-10] MEDS ORDERED: Acetaminophen 325 MG TAB PO PRN (01:09)
[2022-09-10] MEDS ORDERED: NOREPINEPHRINE 8 MG/250 ML-D5W 250 ML IVPB SCH (02:30)
[2022-09-10] MEDS ORDERED: Fleet Enema 133 ML BOT PR SCH (05:00)
[2022-09-10 05:34] LABS: Mean Corpuscular HGB CONC 33.7 g/dL (32.0-36.0); Mean Platelet Volume 5.8 fL (7.4-10.4); Platelet Count 213 10x3/uL (130-400); RBC Distribution Width 12.7 % (11.5-14.5); Red Blood Cell (RBC) Count 3.53 mill/uL (4.70-6.10); White Blood Cell (WBC) Count 23.2 10x3/uL (4.8-10.8)
[2022-09-10 05:39] LABS: Hemoglobin A1c 4.8 % (4.0-6.0)
[2022-09-10 05:53] LABS: ALT (SGPT) 9 U/L (8-55); AST (SGOT) 12 U/L (5-34); Albumin 3.1 g/dL (3.4-4.8); Alkaline Phosphatase 121 U/L (40-110); Anion Gap 12 mmol/L (10-20); BUN (Urea Nitrogen) 18 mg/dL (8.4-25.7); Bilirubin, Total 1.1 mg/dL (0.2-1.2); Calc. Creatinine Clearance 103 mL/min (70-130); Calcium 8.2 mg/dL (7.8-10.44); Carbon Dioxide 24 mmol/L (23-31); Chloride 104 mmol/L (98-107); Estimated GFR 101; Globulin 2.5 g/dL (2.4-3.5); Glucose 163 mg/dL (83-110); Potassium 3.7 mmol/L (3.5-5.1); Protein, Total 5.6 g/dL (5.8-8.1); Sodium 136 mmol/L (136-145)
[2022-09-10] MEDS: Meropenem 1 GM in Sodium Chloride 0.9% 100 ML IVPB SCH ×3 (06:04→22:53)
[2022-09-10 06:17] LABS: Lymphocytes 6 % (21-51); MDiff Complete? YES; Macrocytosis SLIGHT = 6-15 cells (100X) (0-5/hpf); Monocytes 6 % (0-10); Neutrophil 88 % (42-75); Platelet Morphology Comment Appears Adequate; Polychromasia SLIGHT = 2-3 cells (100X) (0-2/hpf)
[2022-09-10] MEDS ORDERED: HumaLOG 300 UNITS/3 ML VIAL SC PRN (08:00)
[2022-09-10] MEDS ORDERED: FLU VACC QS2022-23(65YR UP)/PF 240 MCG/0.7 ML SYRINGE IM ONE (09:00)
[2022-09-10] MEDS: Zinc Sulfate 220 MG CAP PO SCH (10:07)
[2022-09-10] MEDS: Famotidine/PF 20 mg/2ml Vial SLOW IVP SCH ×2 (10:07→20:57)
[2022-09-10] MEDS: Apixaban 5 MG TAB PO SCH ×2 (10:07→20:55)
[2022-09-10] MEDS: Bupropion 150 MG SR TAB PO SCH ×2 (10:07→20:57)
[2022-09-10] MEDS: Polyethylene Glycol 3350 17 GM Packet PO SCH (10:08)
[2022-09-10] MEDS: metFORMIN 500 MG TAB PO SCH (18:18)
[2022-09-10] MEDS: traZODone HCl 50 MG TAB PO SCH (20:52)
[2022-09-10] MEDS: Atorvastatin Calcium 40 MG TAB PO SCH (20:55)
[2022-09-10] MEDS ORDERED: Simvastatin 5 MG TAB PO SCH (21:00)
[2022-09-11 04:52] LABS: #Lymphocytes 0.9 thou/uL (1.20-3.40); #Monocytes 1.1 thou/uL (0.11-0.59); #Neutrophils 6.7 thou/uL (1.40-6.50); %Basophils 0.5 % (0.0-1.0); %Eosinophils 0.5 % (0.0-10.0); %Lymphocytes 10.2 % (21.0-51.0); %Neutrophils 76.8 % (42.0-75.0); Hemoglobin 10.5 g/dL (14.0-18.0); Mean Corpuscular HGB CONC 32.9 g/dL (32.0-36.0); Mean Corpuscular Hemoglobin 33.5 pg (27.0-31.0); Mean Platelet Volume 5.9 fL (7.4-10.4); Platelet Count 177 10x3/uL (130-400); RBC Distribution Width 12.4 % (11.5-14.5); Red Blood Cell (RBC) Count 3.13 mill/uL (4.70-6.10); White Blood Cell (WBC) Count 8.7 10x3/uL (4.8-10.8)
[2022-09-11 05:23] LABS: ALT (SGPT) 12 U/L (8-55); AST (SGOT) 14 U/L (5-34); Albumin 2.8 g/dL (3.4-4.8); Alkaline Phosphatase 98 U/L (40-110); Anion Gap 9 mmol/L (10-20); BUN (Urea Nitrogen) 10 mg/dL (8.4-25.7); Bilirubin, Total 0.8 mg/dL (0.2-1.2); Calc. Creatinine Clearance 117 mL/min (70-130); Calcium 8.1 mg/dL (7.8-10.44); Carbon Dioxide 26 mmol/L (23-31); Chloride 104 mmol/L (98-107); Estimated GFR 104; Globulin 2.3 g/dL (2.4-3.5); Glucose 124 mg/dL (83-110); Potassium 3.5 mmol/L (3.5-5.1); Protein, Total 5.1 g/dL (5.8-8.1); Sodium 135 mmol/L (136-145)
[2022-09-11] MEDS: Meropenem 1 GM in Sodium Chloride 0.9% 100 ML IVPB SCH ×3 (05:36→20:35)
[2022-09-11] MEDS: Potassium Chloride 20 MEQ TAB PO SCH ×2 (06:46→06:49)
[2022-09-11] MEDS ORDERED: Potassium Bicarbonate/Cit Ac 20 MEQ TAB PER TUBE SCH ×2 (07:45→21:00)
[2022-09-11] MEDS: metFORMIN 500 MG TAB PO SCH (08:03)
[2022-09-11] MEDS: Zinc Sulfate 220 MG CAP PO SCH (08:03)
[2022-09-11] MEDS: Bupropion 150 MG SR TAB PO SCH ×2 (08:03→20:25)
[2022-09-11] MEDS: Famotidine/PF 20 mg/2ml Vial SLOW IVP SCH ×2 (08:03→20:26)
[2022-09-11] MEDS: Polyethylene Glycol 3350 17 GM Packet PO SCH (08:03)
[2022-09-11] MEDS: Apixaban 5 MG TAB PO SCH ×2 (08:04→20:25)
[2022-09-11] MEDS: ARGININE PO SCH (09:37)
[2022-09-11] MEDS: VITE AC PO SCH (09:37)
[2022-09-11] MEDS: ASCORBATE SOD PO SCH (09:37)
[2022-09-11 15:19] LABS: Potassium 3.5 mmol/L (3.5-5.1)
[2022-09-11] MEDS: Atorvastatin Calcium 40 MG TAB PO SCH (20:25)
[2022-09-11] MEDS: traZODone HCl 50 MG TAB PO SCH (20:27)
[2022-09-11] MEDS ORDERED: Zolpidem Tartrate 5 MG TAB PO SCH (22:00)
[2022-09-11] MEDS ORDERED: Haloperidol Lactate 5 MG/ML VIAL IM SCH (23:30)
[2022-09-12] MEDS ORDERED: QUEtiapine 25 MG TAB PO SCH (01:15)
[2022-09-12] MEDS ORDERED: Sterile Water 10 ML VIAL FS PRN (04:30)
[2022-09-12] MEDS ORDERED: Ziprasidone 20 MG VIAL IM SCH (04:30)
[2022-09-12] MEDS: Meropenem 1 GM in Sodium Chloride 0.9% 100 ML IVPB SCH ×3 (04:43→21:01)
[2022-09-12] MEDS: VITE AC PO SCH (07:49)
[2022-09-12] MEDS: ARGININE PO SCH (07:49)
[2022-09-12] MEDS: ASCORBATE SOD PO SCH (07:49)
[2022-09-12 07:53] LABS: #Lymphocytes 0.9 thou/uL (1.20-3.40); #Monocytes 1.3 thou/uL (0.11-0.59); #Neutrophils 10.4 thou/uL (1.40-6.50); %Eosinophils 0.4 % (0.0-10.0); %Lymphocytes 7.3 % (21.0-51.0); %Monocytes 10.6 % (0.0-10.0); %Neutrophils 81.8 % (42.0-75.0); Mean Corpuscular HGB CONC 33.3 g/dL (32.0-36.0); Mean Corpuscular Hemoglobin 33.5 pg (27.0-31.0); Mean Platelet Volume 6.1 fL (7.4-10.4); Platelet Count 229 10x3/uL (130-400); RBC Distribution Width 12.3 % (11.5-14.5); Red Blood Cell (RBC) Count 3.89 mill/uL (4.70-6.10); White Blood Cell (WBC) Count 12.7 10x3/uL (4.8-10.8)
[2022-09-12 07:59] LABS: ALT (SGPT) 19 U/L (8-55); AST (SGOT) 27 U/L (5-34); Albumin 3.3 g/dL (3.4-4.8); Alkaline Phosphatase 117 U/L (40-110); Anion Gap 12 mmol/L (10-20); BUN (Urea Nitrogen) 7 mg/dL (8.4-25.7); Calc. Creatinine Clearance 124 mL/min (70-130); Calcium 8.7 mg/dL (7.8-10.44); Carbon Dioxide 22 mmol/L (23-31); Chloride 106 mmol/L (98-107); Estimated GFR 104; Globulin 2.8 g/dL (2.4-3.5); Glucose 173 mg/dL (83-110); Potassium 3.9 mmol/L (3.5-5.1); Protein, Total 6.1 g/dL (5.8-8.1); Sodium 136 mmol/L (136-145)
[2022-09-12] MEDS: Apixaban 5 MG TAB PO SCH ×2 (08:51→21:00)
[2022-09-12] MEDS: Polyethylene Glycol 3350 17 GM Packet PO SCH (08:51)
[2022-09-12] MEDS: Zinc Sulfate 220 MG CAP PO SCH (08:51)
[2022-09-12] MEDS: Famotidine/PF 20 mg/2ml Vial SLOW IVP SCH ×2 (08:51→21:00)
[2022-09-12] MEDS: Bupropion 150 MG SR TAB PO SCH ×2 (10:13→21:12)
[2022-09-12] MEDS ORDERED: Gabapentin 100 MG CAP PO SCH (14:30)
[2022-09-12] MEDS: traZODone HCl 50 MG TAB PO SCH ×2 (21:00→21:13)
[2022-09-12] MEDS: Atorvastatin Calcium 40 MG TAB PO SCH (21:00)
[2022-09-12] MEDS: Zolpidem Tartrate 5 MG TAB PO SCH (21:01)
[2022-09-13] MEDS: Meropenem 1 GM in Sodium Chloride 0.9% 100 ML IVPB SCH ×3 (05:46→21:42)
[2022-09-13] MEDS: Polyethylene Glycol 3350 17 GM Packet PO SCH (09:25)
[2022-09-13] MEDS: Zinc Sulfate 220 MG CAP PO SCH (09:25)
[2022-09-13] MEDS: Apixaban 5 MG TAB PO SCH ×2 (09:25→21:42)
[2022-09-13] MEDS: Bupropion 150 MG SR TAB PO SCH ×2 (09:25→21:41)
[2022-09-13] MEDS: Famotidine/PF 20 mg/2ml Vial SLOW IVP SCH ×2 (09:25→21:41)
[2022-09-13 09:56] LABS: #Eosinphils 0.1 thou/uL (0.0-0.7); #Monocytes 1.5 thou/uL (0.11-0.59); #Neutrophils 8.3 thou/uL (1.40-6.50); %Eosinophils 1.2 % (0.0-10.0); %Lymphocytes 16.6 % (21.0-51.0); %Monocytes 12.7 % (0.0-10.0); %Neutrophils 69.6 % (42.0-75.0); Hemoglobin 13.9 g/dL (14.0-18.0); Mean Corpuscular HGB CONC 33.1 g/dL (32.0-36.0); Mean Corpuscular Hemoglobin 33.4 pg (27.0-31.0); Mean Platelet Volume 6.7 fL (7.4-10.4); Platelet Count 248 10x3/uL (130-400); RBC Distribution Width 12.3 % (11.5-14.5); Red Blood Cell (RBC) Count 4.15 mill/uL (4.70-6.10)
[2022-09-13 10:42] LABS: ALT (SGPT) 24 U/L (8-55); AST (SGOT) 37 U/L (5-34); Albumin 3.2 g/dL (3.4-4.8); Alkaline Phosphatase 115 U/L (40-110); Anion Gap 15 mmol/L (10-20); BUN (Urea Nitrogen) 7 mg/dL (8.4-25.7); Bilirubin, Total 0.9 mg/dL (0.2-1.2); Calc. Creatinine Clearance 104 mL/min (70-130); Calcium 8.5 mg/dL (7.8-10.44); Carbon Dioxide 17 mmol/L (23-31); Chloride 107 mmol/L (98-107); Estimated GFR 100; Globulin 3.2 g/dL (2.4-3.5); Glucose 148 mg/dL (83-110); Potassium 4.7 mmol/L (3.5-5.1); Protein, Total 6.4 g/dL (5.8-8.1); Sodium 134 mmol/L (136-145)
[2022-09-13] MEDS ORDERED: fentaNYL 100 mcg/hour Patch TD SCH (12:00)
[2022-09-13 14:07] VITALS: BMI 20.7
[2022-09-13] MEDS: Gabapentin 300 MG CAP PO SCH ×2 (14:22→21:41)
[2022-09-13] MEDS: metFORMIN 500 MG TAB PO SCH (16:20)
[2022-09-13] MEDS ORDERED: Labetalol HCl 100 MG/20 ML VIAL ONE (21:38)
[2022-09-13] MEDS: Zolpidem Tartrate 5 MG TAB PO SCH (21:41)
[2022-09-13] MEDS: Atorvastatin Calcium 40 MG TAB PO SCH (21:41)
[2022-09-13] MEDS: traZODone HCl 50 MG TAB PO SCH (21:41)
[2022-09-14] MEDS: Meropenem 1 GM in Sodium Chloride 0.9% 100 ML IVPB SCH ×2 (05:39→15:27)
[2022-09-14 06:31] LABS: #Basophils 0.1 thou/uL (0.0-0.2); #Eosinphils 0.1 thou/uL (0.0-0.7); #Lymphocytes 2.4 thou/uL (1.20-3.40); #Monocytes 1.5 thou/uL (0.11-0.59); #Neutrophils 7.6 thou/uL (1.40-6.50); %Basophils 0.6 % (0.0-1.0); %Eosinophils 0.9 % (0.0-10.0); %Lymphocytes 20.3 % (21.0-51.0); %Monocytes 12.9 % (0.0-10.0); %Neutrophils 65.3 % (42.0-75.0); Hemoglobin 13.9 g/dL (14.0-18.0); Mean Corpuscular HGB CONC 33.7 g/dL (32.0-36.0); Mean Corpuscular Hemoglobin 34.6 pg (27.0-31.0); Mean Platelet Volume 6.5 fL (7.4-10.4); Platelet Count 268 10x3/uL (130-400); RBC Distribution Width 12.3 % (11.5-14.5); Red Blood Cell (RBC) Count 4.02 mill/uL (4.70-6.10); White Blood Cell (WBC) Count 11.6 10x3/uL (4.8-10.8)
[2022-09-14 06:55] LABS: ALT (SGPT) 28 U/L (8-55); AST (SGOT) 25 U/L (5-34); Albumin 3.4 g/dL (3.4-4.8); Alkaline Phosphatase 115 U/L (40-110); Anion Gap 11 mmol/L (10-20); BUN (Urea Nitrogen) 9 mg/dL (8.4-25.7); Calc. Creatinine Clearance 109 mL/min (70-130); Calcium 8.8 mg/dL (7.8-10.44); Carbon Dioxide 23 mmol/L (23-31); Chloride 107 mmol/L (98-107); Estimated GFR 101; Globulin 2.7 g/dL (2.4-3.5); Glucose 131 mg/dL (83-110); Potassium 3.9 mmol/L (3.5-5.1); Protein, Total 6.1 g/dL (5.8-8.1); Sodium 137 mmol/L (136-145)
[2022-09-14] MEDS ORDERED: Multivit, Therapeutic 1 TAB PO SCH (09:00)
[2022-09-14] MEDS: Famotidine/PF 20 mg/2ml Vial SLOW IVP SCH (09:11)
[2022-09-14] MEDS: Polyethylene Glycol 3350 17 GM Packet PO SCH (09:12)
[2022-09-14] MEDS: metFORMIN 500 MG TAB PO SCH ×2 (09:12→17:03)
[2022-09-14] MEDS: Gabapentin 300 MG CAP PO SCH ×2 (09:12→17:03)
[2022-09-14] MEDS: Zinc Sulfate 220 MG CAP PO SCH (09:12)
[2022-09-14] MEDS: Apixaban 5 MG TAB PO SCH (09:12)
[2022-09-14] MEDS: Bupropion 150 MG SR TAB PO SCH (09:58)
[2022-09-14 17:37] VITALS: BP 100/70; TEMP 97.7
== END 2022-09-14 18:39 | DRG 871 ==
LOC: ERS 15:00 → CCU 19:27 → T4-A 09-11 10:37
PROVIDERS: ADMIT Family Medicine; ATTEND Family Medicine
PROC: 3E03329 Introduction of Other Anti-infective into Peripheral Vein, Percutaneous Approach (ICD-10-PCS; principal; 2022-09-09)
PROC: 3E043XZ Introduction of Vasopressor into Central Vein, Percutaneous Approach (ICD-10-PCS; 2022-09-09)
PROC: 5A2204Z Restoration of Cardiac Rhythm, Single (ICD-10-PCS; 2022-09-09)
PROC: 02HV33Z Insertion of Infusion Device into Superior Vena Cava, Percutaneous Approach (ICD-10-PCS; 2022-09-09)
PROC: B548ZZA Ultrasonography of Superior Vena Cava, Guidance (ICD-10-PCS; 2022-09-09)
PROC: B548ZZA Ultrasonography of Superior Vena Cava, Guidance (ICD-10-PCS; 2022-09-14)
PROC: 02HV33Z Insertion of Infusion Device into Superior Vena Cava, Percutaneous Approach (ICD-10-PCS; 2022-09-14)
PROC: B5181ZA Fluoroscopy of Superior Vena Cava using Low Osmolar Contrast, Guidance (ICD-10-PCS; 2022-09-14)
DX: A41.4 Sepsis due to anaerobes (principal); L89.153 Pressure ulcer of sacral region, stage 3; L89.154 Pressure ulcer of sacral region, stage 4; R65.21 Severe sepsis with septic shock; F05 Delirium due to known physiological condition; E87.20 Acidosis, unspecified; N12 Tubulo-interstitial nephritis, not specified as acute or chronic; G93.40 Encephalopathy, unspecified; Z20.822 Contact with and (suspected) exposure to COVID-19; I10 Essential (primary) hypertension; E11.40 Type 2 diabetes mellitus with diabetic neuropathy, unspecified; I48.0 Paroxysmal atrial fibrillation; R79.89 Other specified abnormal findings of blood chemistry; K52.89 Other specified noninfective gastroenteritis and colitis; G47.00 Insomnia, unspecified; G20 Parkinson's disease; F02.80 Dementia in other diseases classified elsewhere, unspecified severity, without behavioral disturbance, psychotic disturbance, mood disturbance, and anxiety; Z78.1 Physical restraint status; Z87.440 Personal history of urinary (tract) infections; Z79.899 Other long term (current) drug therapy; Z88.6 Allergy status to analgesic agent; Z88.8 Allergy status to other drugs, medicaments and biological substances; Z79.01 Long term (current) use of anticoagulants; Z79.84 Long term (current) use of oral hypoglycemic drugs; Z90.49 Acquired absence of other specified parts of digestive tract; Z98.890 Other specified postprocedural states; Z83.3 Family history of diabetes mellitus; Z82.49 Family history of ischemic heart disease and other diseases of the circulatory system; Z95.1 Presence of aortocoronary bypass graft; Z74.01 Bed confinement status
CPT/HCPCS: 36415; 36416; 36556; 36569; 51702; 70450; 71045; 72125; 74177; 80053; 80306; 80307; 81003; 81015; 82140; 82533; 82550; 83036; 83605; 83690; 83880; 84443; 84484; 85025; 85610; 85730; 86140; 87040; 87077; 87086; 87149; 87186; 92960; 93005; 93010; 96361; 96365; 96366; 97139; J0692; J1630; J1650; J1815; J2185; J3370-JW; J3486; J3490; J7120; Q9967; S0028

== ENCOUNTER 2022-10-16 15:53 | Inpatient (IN) | payer MEDICARE, MEDICAID ==
[2022-10-16] MEDS ORDERED: Cefepime 2 GM VIAL ONE (16:19)
[2022-10-16 16:24] LABS: Hemoglobin 13.4 g/dL (14.0-18.0); Mean Corpuscular HGB CONC 33.4 g/dL (32.0-36.0); Mean Corpuscular Volume 98.6 fl (78.0-98.0); Mean Platelet Volume 6.5 fL (7.4-10.4); Platelet Count 215 10x3/uL (130-400); RBC Distribution Width 13.2 % (11.5-14.5); Red Blood Cell (RBC) Count 4.07 mill/uL (4.70-6.10); White Blood Cell (WBC) Count 13.1 10x3/uL (4.8-10.8)
[2022-10-16 16:36] LABS: INR-International Normal Ratio 1.3; Prothrombin Time 16.6 sec (12.0-14.7)
[2022-10-16 16:40] LABS: ALT (SGPT) 26 U/L (8-55); AST (SGOT) 28 U/L (5-34); Albumin 3.6 g/dL (3.4-4.8); Alkaline Phosphatase 117 U/L (40-110); Anion Gap 16 mmol/L (10-20); BUN (Urea Nitrogen) 28 mg/dL (8.4-25.7); Calc. Creatinine Clearance 0 mL/min (70-130); Calcium 9.5 mg/dL (7.8-10.44); Carbon Dioxide 25 mmol/L (23-31); Chloride 99 mmol/L (98-107); Estimated GFR 94; Globulin 3.5 g/dL (2.4-3.5); Glucose 200 mg/dL (83-110); Potassium 3.2 mmol/L (3.5-5.1); Protein, Total 7.1 g/dL (5.8-8.1); Sodium 137 mmol/L (136-145)
[2022-10-16 17:03] LABS: Band 14 % (5-11); Lymphocytes 14 % (21-51); MDiff Complete? YES; Monocytes 12 % (0-10); Neutrophil 60 % (42-75); Platelet Morphology Comment Appears Adequate; RBC Morphology Normal
[2022-10-16] MEDS ORDERED: Ondansetron ODT 4 MG TAB PO PRN (17:42)
[2022-10-16] MEDS ORDERED: Ondansetron PF 4 MG/2 ML Vial IVP PRN (17:42)
[2022-10-16] MEDS ORDERED: Acetaminophen 325 MG TAB PO PRN (17:42)
[2022-10-16] MEDS ORDERED: Sodium Chloride 0.9% 1,000 ML IV SCH (17:45)
[2022-10-16 18:00] LABS: Bacteria/HPF None Seen HPF (None Seen); Bilirubin Negative (Negative); Blood, Urine 3+ (Negative); Clarity Clear (Clear); Glucose, Urine (Dipstick) Normal (Negative); Ketone, Urine 40 mg/dL (Negative); Leukocyte Negative Leu/uL (Negative); Nitrite Negative (Negative); Protein, Urine (Dipstick) 70 mg/dL (Neg-Trace); RBC/HPF Greater than 50 HPF (0-3); Specific Gravity, Urine 1.032 (1.002-1.036); Squamous Epithelial None Seen HPF (0-3); Urobilinogen 6 mg/dL (Less than 2)
[2022-10-16] MEDS ORDERED: Vancomycin 1 GM/200 ML (FROZEN) BAG ONE (18:11)
[2022-10-16 18:23] LABS: SARS-CoV-2 NAA Rapid Test Not Detected (NotDetected)
[2022-10-16] MEDS ORDERED: Dextrose 5% in Water 1,000 ML IV PRN (18:40)
[2022-10-16] MEDS ORDERED: Dextrose 50% Abboject 50 ML SYRINGE SLOW IVP PRN (18:40)
[2022-10-16] MEDS ORDERED: HumaLOG 300 UNITS/3 ML VIAL SC PRN (18:40)
[2022-10-16] MEDS ORDERED: Potassium Chloride 20 MEQ TAB PO SCH (18:45)
[2022-10-16] MEDS ORDERED: Electrolyte Replacement Protocol 1 EACH FS SCH ×2 (18:45)
[2022-10-16 19:53] VITALS: BMI 20.6
[2022-10-16 20:00] LABS: Magnesium 2.2 mg/dL (1.6-2.6)
[2022-10-16] MEDS ORDERED: Meropenem 1 GM in Sodium Chloride 0.9% 100 ML IVPB SCH (20:00)
[2022-10-16] MEDS: Apixaban 5 MG TAB PO SCH (22:38)
[2022-10-17 05:32] LABS: Anion Gap 12 mmol/L (10-20); BUN (Urea Nitrogen) 20 mg/dL (8.4-25.7); Calc. Creatinine Clearance 109 mL/min (70-130); Calcium 8.7 mg/dL (7.8-10.44); Carbon Dioxide 24 mmol/L (23-31); Chloride 104 mmol/L (98-107); Estimated GFR 101; Glucose 132 mg/dL (83-110); Magnesium 1.8 mg/dL (1.6-2.6); Potassium 3.2 mmol/L (3.5-5.1); Sodium 137 mmol/L (136-145)
[2022-10-17 05:35] LABS: Phosphorus 1.6 mg/dL (2.3-4.7)
[2022-10-17 05:55] LABS: Hemoglobin 12.3 g/dL (14.0-18.0); Lymphocytes 6 % (21-51); MDiff Complete? YES; Macrocytosis SLIGHT = 6-15 cells (100X) (0-5/hpf); Mean Corpuscular HGB CONC 34.6 g/dL (32.0-36.0); Mean Corpuscular Hemoglobin 34.4 pg (27.0-31.0); Mean Corpuscular Volume 99.6 fl (78.0-98.0); Mean Platelet Volume 6.4 fL (7.4-10.4); Monocytes 5 % (0-10); Neutrophil 89 % (42-75); Ovalocytes SLIGHT = 2-5 cells (100X) (0-1/hpf); Platelet Count 192 10x3/uL (130-400); Platelet Morphology Comment Appears Adequate; RBC Distribution Width 13.1 % (11.5-14.5); Red Blood Cell (RBC) Count 3.58 mill/uL (4.70-6.10)
[2022-10-17] MEDS: Meropenem 1 GM in Sodium Chloride 0.9% 100 ML IVPB SCH ×3 (05:57→21:08)
[2022-10-17] MEDS ORDERED: Magnesium 2 GM/50 ML(in water) 2 GM in Premix Bag 1 BAG IVPB SCH (08:00)
[2022-10-17] MEDS ORDERED: Potassium Chloride 20 MEQ TAB PO SCH (08:00)
[2022-10-17] MEDS: Apixaban 5 MG TAB PO SCH ×2 (09:32→21:05)
[2022-10-17] MEDS: PHOS-NAK 1 PKT PACK PO SCH ×2 (09:32→13:06)
[2022-10-17] MEDS: Gabapentin 300 MG CAP PO SCH ×3 (09:32→21:05)
[2022-10-17] MEDS: Saccharomyces boulardii 250 MG CAP PO SCH (09:33)
[2022-10-17] MEDS: fentaNYL 50 mcg/hour Patch TD SCH (09:34)
[2022-10-17] MEDS: Transdermal Patch Removal TOP SCH (09:36)
[2022-10-17] MEDS: Bupropion 150 MG SR TAB PO SCH ×2 (09:40→21:06)
[2022-10-17] MEDS: Vancomycin 1 GM in Premix Bag 1 BAG IVPB SCH (18:27)
[2022-10-17] MEDS: traZODone HCl 50 MG TAB PO SCH (21:05)
[2022-10-17] MEDS: Atorvastatin Calcium 40 MG TAB PO SCH (21:05)
[2022-10-17] MEDS: Nystatin 500,000 UNITS/5 ML UDCUP SSW SCH (21:06)
[2022-10-18 04:22] LABS: #Eosinphils 0.1 thou/uL (0.0-0.7); #Monocytes 1.2 thou/uL (0.11-0.59); #Neutrophils 8.7 thou/uL (1.40-6.50); %Basophils 0.3 % (0.0-1.0); %Eosinophils 0.6 % (0.0-10.0); %Lymphocytes 9.2 % (21.0-51.0); %Monocytes 10.6 % (0.0-10.0); %Neutrophils 79.3 % (42.0-75.0); Hemoglobin 11.6 g/dL (14.0-18.0); Mean Corpuscular HGB CONC 33.5 g/dL (32.0-36.0); Mean Corpuscular Hemoglobin 33.9 pg (27.0-31.0); Mean Platelet Volume 6.6 fL (7.4-10.4); Platelet Count 193 10x3/uL (130-400); Red Blood Cell (RBC) Count 3.43 mill/uL (4.70-6.10); White Blood Cell (WBC) Count 10.9 10x3/uL (4.8-10.8)
[2022-10-18 04:38] LABS: Anion Gap 11 mmol/L (10-20); BUN (Urea Nitrogen) 20 mg/dL (8.4-25.7); Calc. Creatinine Clearance 117 mL/min (70-130); Calcium 8.4 mg/dL (7.8-10.44); Carbon Dioxide 26 mmol/L (23-31); Chloride 104 mmol/L (98-107); Estimated GFR 103; Glucose 106 mg/dL (83-110); Potassium 3.1 mmol/L (3.5-5.1); Sodium 138 mmol/L (136-145)
[2022-10-18] MEDS: Vancomycin 1 GM in Premix Bag 1 BAG IVPB SCH ×2 (04:42→15:20)
[2022-10-18] MEDS: Meropenem 1 GM in Sodium Chloride 0.9% 100 ML IVPB SCH ×3 (06:10→21:57)
[2022-10-18] MEDS ORDERED: Potassium Chloride 20 MEQ TAB PO SCH ×2 (08:00→09:00)
[2022-10-18] MEDS: Nystatin 500,000 UNITS/5 ML UDCUP SSW SCH ×4 (10:29→20:36)
[2022-10-18] MEDS: Gabapentin 300 MG CAP PO SCH ×3 (10:29→20:35)
[2022-10-18] MEDS: Apixaban 5 MG TAB PO SCH ×2 (10:29→20:35)
[2022-10-18] MEDS: Saccharomyces boulardii 250 MG CAP PO SCH (10:30)
[2022-10-18] MEDS: Bupropion 150 MG SR TAB PO SCH ×2 (10:30→20:35)
[2022-10-18] MEDS: Potassium Chloride 20 MEQ TAB PO SCH (18:46)
[2022-10-18] MEDS: HumaLOG 300 UNITS/3 ML VIAL SC PRN (18:46)
[2022-10-18] MEDS: traZODone HCl 50 MG TAB PO SCH (20:36)
[2022-10-18] MEDS: Atorvastatin Calcium 40 MG TAB PO SCH (20:36)
[2022-10-19 04:01] LABS: #Eosinphils 0.1 thou/uL (0.0-0.7); #Lymphocytes 1.3 thou/uL (1.20-3.40); #Monocytes 1.4 thou/uL (0.11-0.59); #Neutrophils 7.6 thou/uL (1.40-6.50); %Basophils 0.1 % (0.0-1.0); %Eosinophils 0.8 % (0.0-10.0); %Lymphocytes 12.3 % (21.0-51.0); %Monocytes 13.8 % (0.0-10.0); Hemoglobin 11.9 g/dL (14.0-18.0); Mean Corpuscular HGB CONC 32.4 g/dL (32.0-36.0); Mean Corpuscular Hemoglobin 32.8 pg (27.0-31.0); Mean Platelet Volume 6.4 fL (7.4-10.4); Platelet Count 218 10x3/uL (130-400); Red Blood Cell (RBC) Count 3.64 mill/uL (4.70-6.10); White Blood Cell (WBC) Count 10.4 10x3/uL (4.8-10.8)
[2022-10-19 04:12] LABS: Anion Gap 10 mmol/L (10-20); BUN (Urea Nitrogen) 17 mg/dL (8.4-25.7); Calc. Creatinine Clearance 114 mL/min (70-130); Carbon Dioxide 25 mmol/L (23-31); Chloride 102 mmol/L (98-107); Estimated GFR 103; Glucose 107 mg/dL (83-110); Potassium 3.9 mmol/L (3.5-5.1); Sodium 133 mmol/L (136-145)
[2022-10-19] MEDS: Vancomycin 1 GM in Premix Bag 1 BAG IVPB SCH ×3 (04:29→13:20)
[2022-10-19] MEDS: Meropenem 1 GM in Sodium Chloride 0.9% 100 ML IVPB SCH ×2 (05:12→13:20)
[2022-10-19] MEDS: Nystatin 500,000 UNITS/5 ML UDCUP SSW SCH ×4 (09:07→21:42)
[2022-10-19] MEDS: Apixaban 5 MG TAB PO SCH ×2 (09:08→21:44)
[2022-10-19] MEDS: Saccharomyces boulardii 250 MG CAP PO SCH (09:08)
[2022-10-19] MEDS: Potassium Chloride 20 MEQ TAB PO SCH ×2 (09:08→16:08)
[2022-10-19] MEDS: Bupropion 150 MG SR TAB PO SCH ×2 (09:08→22:15)
[2022-10-19] MEDS: Gabapentin 300 MG CAP PO SCH ×3 (09:08→21:43)
[2022-10-19] MEDS: HumaLOG 300 UNITS/3 ML VIAL SC PRN (11:16)
[2022-10-19] MEDS: Doxycycline 100 MG CAP PO SCH (21:42)
[2022-10-19] MEDS: Atorvastatin Calcium 40 MG TAB PO SCH (21:42)
[2022-10-19] MEDS: traZODone HCl 50 MG TAB PO SCH (21:43)
[2022-10-20] MEDS: Apixaban 5 MG TAB PO SCH (08:30)
[2022-10-20] MEDS: Gabapentin 300 MG CAP PO SCH ×2 (08:30→14:09)
[2022-10-20] MEDS: Bupropion 150 MG SR TAB PO SCH (08:30)
[2022-10-20] MEDS: Doxycycline 100 MG CAP PO SCH (08:31)
[2022-10-20] MEDS: Nystatin 500,000 UNITS/5 ML UDCUP SSW SCH ×2 (08:31→12:58)
[2022-10-20] MEDS: fentaNYL 50 mcg/hour Patch TD SCH (08:31)
[2022-10-20] MEDS: Saccharomyces boulardii 250 MG CAP PO SCH (08:31)
[2022-10-20] MEDS: Transdermal Patch Removal TOP SCH (08:32)
[2022-10-20] MEDS ORDERED: Potassium Chloride 20 MEQ TAB PO SCH (09:00)
[2022-10-20 11:22] VITALS: TEMP 98
[2022-10-20] MEDS: HumaLOG 300 UNITS/3 ML VIAL SC PRN (12:58)
[2022-10-20 15:12] VITALS: BP 100/55
== END 2022-10-20 16:14 | DRG 871 ==
LOC: ERS 15:53 → 2NO 18:01
PROVIDERS: ADMIT Internal Medicine; ATTEND Internal Medicine
DX: A41.9 Sepsis, unspecified organism (principal); J15.9 Unspecified bacterial pneumonia; J96.01 Acute respiratory failure with hypoxia; J44.0 Chronic obstructive pulmonary disease with (acute) lower respiratory infection; I48.91 Unspecified atrial fibrillation; E11.40 Type 2 diabetes mellitus with diabetic neuropathy, unspecified; E87.6 Hypokalemia; Z20.822 Contact with and (suspected) exposure to COVID-19; F32.A Depression, unspecified; I10 Essential (primary) hypertension; E87.5 Hyperkalemia; F03.90 Unspecified dementia, unspecified severity, without behavioral disturbance, psychotic disturbance, mood disturbance, and anxiety; L89.152 Pressure ulcer of sacral region, stage 2; Z88.5 Allergy status to narcotic agent; Z88.8 Allergy status to other drugs, medicaments and biological substances; Z79.01 Long term (current) use of anticoagulants; Z79.84 Long term (current) use of oral hypoglycemic drugs; Z79.899 Other long term (current) drug therapy; Z90.49 Acquired absence of other specified parts of digestive tract; Z98.890 Other specified postprocedural states; Z95.1 Presence of aortocoronary bypass graft; Z87.891 Personal history of nicotine dependence; Z74.01 Bed confinement status
CPT/HCPCS: 36415; 36416; 51701; 71045; 80048; 80053; 80202; 81003; 81015; 83605; 83690; 83735; 84100; 84484; 85025; 85610; 85730; 87040; 87081; 87086; 87633; 94760; 96365; 96367; 97139; J0692; J1815; J1956; J2185; J3370-JW; J3475; J3490; J7050